=== PATIENT | male | born 1940 ===

== ENCOUNTER 2021-02-12 09:32 | Emergency (ER) | payer MEDICARE, BC ==
[2021-02-12] MEDS ORDERED: Sodium Chloride 0.9% 1,000 ML IV ONE (09:53)
--- NOTE | 2021-02-12 10:01 | EDM.PDOC ---
ED HPI GENERAL MEDICAL PROBLEM - General Chief Complaint: General Stated Complaint: WEAK CANT GET FLUIDS DOWN Time Seen by Provider: 02/12/21 09:42 Source of Information: Reports: Patient History Limitations: Reports: No Limitations - History of Present Illness INITIAL COMMENTS - FREE TEXT/NARRATIVE: She is a 80-year-old male who was tested positive for Covid a few days ago pre sents today for increased weakness and fatigue. Patient also states he has some nausea but not able tolerate p.o. for the past few days as well. Patient otherwise does not report any increased shortness of breath. - Related Data Allergies Allergy/AdvReac Type Severity Reaction Status Date / Time No Known Allergies Allergy Verified 02/12/21 09:38 Home Meds: Home Meds . [No Known Home Meds] 02/12/21 [History] Past Medical History - Past Health History Medical/Surgical History: Denies Medical/Surgical History - Infectious Disease History Infectious Disease History: Reports: Chicken Pox, Measles, Mumps, Novel Coronavirus, Rubella Social & Family History - Family History Family Medical History: No Pertinent Family History ED ROS GENERAL - Review of Systems Review Of Systems: See Below Constitutional: Reports: No Symptoms HEENT: Reports: No Symptoms Respiratory: Reports: No Symptoms Cardiovascular: Reports: No Symptoms Endocrine: Reports: No Symptoms GI/Abdominal: Reports: No Symptoms : Reports: No Symptoms Musculoskeletal: Reports: No Symptoms Skin: Reports: No Symptoms Neurological: Reports: Weakness Psychiatric: Reports: No Symptoms Hematologic/Lymphatic: Reports: No Symptoms Immunologic: Reports: No Symptoms ED EXAM, GENERAL - Physical Exam Exam: See Below Exam Limited By: No Limitations General Appearance: Alert, WD/WN, No Apparent Distress Eye Exam: Bilateral Eye: EOMI Head: Atraumatic Respiratory/Chest: No Respiratory Distress, Lungs Clear, Normal Breath Sounds Cardiovascular: Normal Peripheral Pulses, Regular Rate, Rhythm GI/Abdominal: Normal Bowel Sounds, Soft, Non-Tender Neurological: Alert, Oriented, Normal Cognition, Normal Gait #1 Interpretation EKG Date: 02/12/21 Time: 09:35 Rhythm: NSR Rate (Beats/Min): 83 ST-T: Normal Course - Vital Signs Last Recorded V/S: Last Vital Signs Temp 99.7 F 02/12/21 09:39 Pulse 75 02/12/21 11:25 Resp 18 02/12/21 11:25 BP 106/62 02/12/21 11:25 Pulse Ox 93 L 02/12/21 11:25 - Orders/Labs/Meds Orders: Active Orders 24 hr Category Date Time Status EKG Documentation Completion [RC] STAT Care 02/12/21 09:57 Active Labs: Laboratory Tests 02/12/21 02/12/21 02/12/21 Range/Units 09:42 09:42 09:42 WBC 5.69 (4.0-11.0) K/uL RBC 4.72 (4.50-5.90) M/uL Hgb 14.4 (13.0-17.0) g/dL Hct 42.6 (38.0-50.0) % MCV 90.3 (80.0-98.0) fL MCH 30.5 (27.0-32.0) pg MCHC 33.8 (31.0-37.0) g/dL RDW Std Deviation 41.9 (28.0-62.0) fl RDW Coeff of Lillian 13 (11.0-15.0) % Plt Count 141 L (150-400) K/uL MPV 10.50 (7.40-12.00) fL Neut % (Auto) 81.8 H (48.0-80.0) % Lymph % (Auto) 8.1 L (16.0-40.0) % [place] % (Auto) 9.7 (0.0-15.0) % Eos % (Auto) 0.2 (0.0-7.0) % Baso % (Auto) 0.2 (0.0-1.5) % Neut # (Auto) 4.7 (1.4-5.7) K/uL Lymph # (Auto) 0.5 L (0.6-2.4) K/uL [place] # (Auto) 0.6 (0.0-0.8) K/uL Eos # (Auto) 0.0 (0.0-0.7) K/uL Baso # (Auto) 0.0 (0.0-0.1) K/uL Nucleated RBC % 0.0 /100WBC Nucleated RBCs # 0 K/uL Lactate 1.3 (0.20-2.00) mmol/L Sodium 138 (136-148) mmol/L Potassium 4.6 (3.5-5.1) mmol/L Chloride 105 (98-107) mmol/L Carbon Dioxide 20.7 L (21.0-32.0) mmol/L BUN 51 H (7.0-18.0) mg/dL Creatinine 3.0 H (0.8-1.3) mg/dL Est Cr Clr Drug Dosing 21.27 mL/min Estimated GFR (MDRD) 20.3 ml/min Glucose 141 H (74-106) mg/dL Calcium 8.0 L (8.5-10.1) mg/dL Phosphorus 2.8 (2.6-4.7) mg/dL Magnesium 2.1 (1.8-2.4) mg/dL Total Bilirubin 0.6 (0.2-1.0) mg/dL AST 36 (15-37) IU/L ALT 33 (14-63) IU/L Alkaline Phosphatase 76 (46-116) U/L Total Protein 7.3 (6.4-8.2) g/dL Albumin 3.0 L (3.4-5.0) g/dL Globulin 4.3 H (2.6-4.0) g/dL Albumin/Globulin Ratio 0.7 L (0.9-1.6) Meds: Medications Discontinued Medications Generic Name Dose Route Start Last Admin Trade Name Kennedyq PRN Reason Stop Dose Admin Sodium Chloride 1,000 mls @ 999 mls/hr 02/12/21 09:53 02/12/21 10:12 Normal Saline IV 02/12/21 10:53 999 mls/hr .BOLUS ONE Administration - Re-Assessments/Exams Free Text/Narrative Re-Assessment/Exam: 02/12/21 11:58 Patient labs reviewed. Patient creatinine is 3 as well as baseline of 2.7. Patient was given a liter of fluids and feels a lot better here. Patient oxygen level hangs around 95% on room air. We spoke to patient about possible admission he states that he would prefer to go home we spoke to patient's that the patient could possibly be admitted as well but they both like the patient to be discharged home and can return at a later date. Patient x-ray is clear and states he has no complaints of shortness of breath he mainly came in for feeling weak and nauseous. Patient now feels better and feels that he can tolerate p.o. Departure - Departure Time of Disposition: 11:59 Disposition: Home, Self-Care 01 Condition: Good Clinical Impression: Ongoing symptomatic disease due to COVID-19 virus - Discharge Information *PRESCRIPTION DRUG MONITORING PROGRAM REVIEWED*: Not Applicable *COPY OF PRESCRIPTION DRUG MONITORING REPORT IN PATIENT CARLOS: Not Applicable Instructions: COVID-19 Frequently Asked Questions Referrals: PCP,None [Primary Care Provider] - Forms: ED Department Discharge Additional Instructions: The following information is given to patients seen in the emergency department who are being discharged to home. This information is to outline your options for follow-up care. We provide all patients seen in our emergency department with a follow-up referral. The need for follow-up, as well as the timing and circumstances, are variable depending upon the specifics of your emergency department visit. If you don't have a primary care physician on staff, we will provide you with a referral. We always advise you to contact your personal physician following an emergency department visit to inform them of the circumstance of the visit and for follow-up with them and/or the need for any referrals to a consulting specialist. The emergency department will also refer you to a specialist when appropriate. This referral assures that you have the opportunity for follow-up care with a specialist. All of these measure are taken in an effort to provide you with optimal care, which includes your follow-up. Under all circumstances we always encourage you to contact your private physician who remains a resource for coordinating your care. When calling for follow-up care, please make the office aware that this follow-up is from your recent emergency room visit. If for any reason you are refused follow-up, please contact the [facility] Emergency Department at and asked to speak to the emergency department charge nurse. Please follow up with your primary care physician. If you do not have a primary care physician, see below: [facility] [address] [place] [id number] [facility] [address] [place] [address] You are seen today for weakness and fatigue. You were diagnosed with Covid a few days ago. Your oxygen levels around 95% we could keep you in the hospital and monitor you you and your both elected to have you go home and return if you felt worse. Recommend you stay hydrated and get rest while at home if you b ecome short of breath please immediately return to the ED. Sepsis Event Note (ED) - Evaluation Sepsis Screening Result: No Definite Risk - Focused Exam Vital Signs: Vital Signs Temp Pulse Resp BP Pulse Ox 02/12/21 11:25 75 18 106/62 93 L 02/12/21 09:39 99.7 F 86 18 113/67 90 L - My Orders Last 24 Hours: My Active Orders 02/12/21 09:57 EKG Documentation Completion [RC] STAT - Assessment/Plan Last 24 Hours: My Active Orders 02/12/21 09:57 EKG Documentation Completion [RC] STAT Plan: Patient is a 80-year-old male who presents today for increased weakness and fatigue after being tested positive for Covid. Will obtain labs x-ray EKG and reassess.
[2021-02-12 10:17] LABS: CARBON DIOXIDE,CO2 20.7 mmol/L (21.0-32.0); POTASSIUM,K 4.6 mmol/L (3.5-5.1)
--- NOTE | 2021-02-12 10:24 | CR ---
INDICATION: Weakness. COVID positive. TECHNIQUE: Chest 1 view COMPARISON: None FINDINGS: Cardiovascular and mediastinum: Heart size and vasculature are normal in caliber and appearance. Lungs and pleural spaces: Lungs are clear. No sign of infiltrate or mass. No sign of pleural effusion. No pneumothorax. Bones and soft tissues: No significant findings. IMPRESSION: No acute or significant findings. No sign of pneumonia. Dictated by Brian Espinosa MD @ 02/12/2021 10:23:[address] Brian Espinosa @ Feb 12 2021 10:23AM
== END 2021-02-12 12:06 | disposition home or self-care (01) ==
LOC: MW.ED 09:32
DX: U07.1 COVID-19 (principal)
CPT/HCPCS: 71045; 80053; 83605; 83735; 84100; 85025; 93005; 99285; J7030; 93010; 99283

== ENCOUNTER 2021-02-13 13:45 | Inpatient (IN) | payer MEDICARE, BC ==
[2021-02-13 14:51] LABS: BLOOD UREA NITROGEN,BUN 50 mg/dL (7.0-18.0); CARBON DIOXIDE,CO2 25.1 mmol/L (21.0-32.0); CHLORIDE,CL 106 mmol/L (98-107); GLUCOSE RANDOM 108 mg/dL (74-106); POTASSIUM,K 4.6 mmol/L (3.5-5.1); SODIUM,NA 141 mmol/L (136-148)
[2021-02-13] MEDS ORDERED: Benzonatate 100 MG Cap PO ONE (14:54)
--- NOTE | 2021-02-13 14:57 | EDM.PDOC ---
ED HPI GENERAL MEDICAL PROBLEM - General Chief Complaint: Respiratory Problem Stated Complaint: DIIFICULTY BREATHING Time Seen by Provider: 02/13/21 14:02 Source of Information: Reports: Patient History Limitations: Reports: No Limitations - History of Present Illness INITIAL COMMENTS - FREE TEXT/NARRATIVE: Patient is a 80-year-old male who presents today for cough and weakness. Patient was seen here yesterday by myself at the was diagnosed with Covid a few days ago. At that time he said pain states he was feeling well after having a liter of fluids he come in yesterday because of his decreased p.o. intake. Patient here today was satting about 80% on room air but he still feels tired and weak. Patient otherwise denies any fever chills or chest pain. - Related Data Allergies Allergy/AdvReac Type Severity Reaction Status Date / Time No Known Allergies Allergy Verified 02/13/21 13:58 Home Meds: Home Meds . [No Known Home Meds] 02/12/21 [History] Past Medical History - Past Health History Medical/Surgical History: Denies Medical/Surgical History - Infectious Disease History Infectious Disease History: Reports: Chicken Pox, Measles, Mumps, Novel Coronavirus, Rubella Social & Family History - Family History Family Medical History: No Pertinent Family History - Tobacco Use Tobacco Use Status *Q: Unknown Ever Used Tobacco - Caffeine Use Caffeine Use: Reports: None - Recreational Drug Use Recreational Drug Use: No ED ROS GENERAL - Review of Systems Review Of Systems: See Below Constitutional: Reports: Weakness HEENT: Reports: No Symptoms Respiratory: Reports: No Symptoms Cardiovascular: Reports: No Symptoms Endocrine: Reports: No Symptoms GI/Abdominal: Reports: No Symptoms : Reports: No Symptoms Musculoskeletal: Reports: No Symptoms Skin: Reports: No Symptoms Neurological: Reports: No Symptoms Psychiatric: Reports: No Symptoms Hematologic/Lymphatic: Reports: No Symptoms Immunologic: Reports: No Symptoms ED EXAM, GENERAL - Physical Exam Exam: See Below Exam Limited By: No Limitations General Appearance: Alert, WD/WN Eye Exam: Bilateral Eye: EOMI, PERRL Respiratory/Chest: No Respiratory Distress, Lungs Clear Cardiovascular: Normal Peripheral Pulses, Regular Rate, Rhythm GI/Abdominal: Normal Bowel Sounds, Soft, Non-Tender Neurological: Alert, Oriented #1 Interpretation EKG Date: 02/13/21 Time: 13:52 Rhythm: NSR Rate (Beats/Min): 93 ST-T: Normal Course - Vital Signs Last Recorded V/S: Last Vital Signs Temp 98.6 F 02/13/21 13:58 Pulse 81 02/13/21 15:38 Resp 17 02/13/21 15:38 BP 134/80 02/13/21 15:38 Pulse Ox 94 L 02/13/21 15:38 - Orders/Labs/Meds Labs: Laboratory Tests 02/13/21 02/13/21 02/13/21 Range/Units 14:12 14:12 14:25 WBC 5.53 (4.0-11.0) K/uL RBC 4.64 (4.50-5.90) M/uL Hgb 14.1 (13.0-17.0) g/dL Hct 41.7 (38.0-50.0) % MCV 89.9 (80.0-98.0) fL MCH 30.4 (27.0-32.0) pg MCHC 33.8 (31.0-37.0) g/dL RDW Std Deviation 41.9 (28.0-62.0) fl RDW Coeff of Lillian 13 (11.0-15.0) % Plt Count 157 (150-400) K/uL MPV 9.90 (7.40-12.00) fL Neut % (Auto) 75.7 (48.0-80.0) % Lymph % (Auto) 10.7 L (16.0-40.0) % [place] % (Auto) 13.4 (0.0-15.0) % Eos % (Auto) 0.0 (0.0-7.0) % Baso % (Auto) 0.2 (0.0-1.5) % Neut # (Auto) 4.2 (1.4-5.7) K/uL Lymph # (Auto) 0.6 (0.6-2.4) K/uL [place] # (Auto) 0.7 (0.0-0.8) K/uL Eos # (Auto) 0.0 (0.0-0.7) K/uL Baso # (Auto) 0.0 (0.0-0.1) K/uL Nucleated RBC % 0.0 /100WBC Nucleated RBCs # 0 K/uL Sodium 141 (136-148) mmol/L Potassium 4.6 (3.5-5.1) mmol/L Chloride 106 (98-107) mmol/L Carbon Dioxide 25.1 (21.0-32.0) mmol/L BUN 50 H (7.0-18.0) mg/dL Creatinine 2.9 H (0.8-1.3) mg/dL Est Cr Clr Drug Dosing 21.33 mL/min Estimated GFR (MDRD) 21.1 ml/min Glucose 108 H (74-106) mg/dL Calcium 8.1 L (8.5-10.1) mg/dL Total Bilirubin 0.6 (0.2-1.0) mg/dL AST 39 H (15-37) IU/L ALT 31 (14-63) IU/L Alkaline Phosphatase 77 (46-116) U/L Creatine Kinase 63 (26-308) U/L Troponin I < 0.050 (0.000-0.056) ng/mL Total Protein 7.3 (6.4-8.2) g/dL Albumin 2.9 L (3.4-5.0) g/dL Globulin 4.4 H (2.6-4.0) g/dL Albumin/Globulin Ratio 0.7 L (0.9-1.6) SARS-CoV-2 RNA (ROSIO) POSITIVE H (NEGATIVE) Meds: Medications Discontinued Medications Generic Name Dose Route Start Last Admin Trade Name Freq PRN Reason Stop Dose Admin Benzonatate 100 mg 02/13/21 14:54 02/13/21 15:12 Benzonatate 100 Mg Cap PO 02/13/21 14:55 100 mg ONETIME ONE Administration - Re-Assessments/Exams Free Text/Narrative Re-Assessment/Exam: 02/13/21 16:23 Patient will be admitted to the hospital she remains satting in the low 90s high 80s on nasal cannula. Departure - Departure Time of Disposition: 16:23 Disposition: Admitted As Inpatient 66 Condition: Good Clinical Impression: Multiple persistent symptoms after COVID-19 - Discharge Information *PRESCRIPTION DRUG MONITORING PROGRAM REVIEWED*: Not Applicable *COPY OF PRESCRIPTION DRUG MONITORING REPORT IN PATIENT CARLOS: Not Applicable Referrals: PCP,None [Primary Care Provider] - Forms: ED Department Discharge Sepsis Event Note (ED) - Evaluation Sepsis Screening Result: No Definite Risk - Focused Exam Vital Signs: Vital Signs Temp Pulse Resp BP Pulse Ox 02/13/21 15:38 81 17 134/80 94 L 02/13/21 13:58 98.6 F 93 17 135/71 88 L - Assessment/Plan Plan: Patient 80-year-old male presents today for weakness and fatigue and also requiring 2 L nasal cannula his oxygen level was 88% on room air. Patient will have repeat x-ray labs and likely require admission.
--- NOTE | 2021-02-13 15:34 | CR ---
HISTORY: COVID-19 positive with hypoxia. COMPARISON: From yesterday at 1006 hours FINDINGS: A portable erect AP view of the chest was obtained at 14 50 hours. There is new mild patchy infiltrate in the left lateral mid-lower lung, with a hazy appearance typical of COVID-19 infection, although not diagnostic of it. There is new minimal streaky infiltrate in the right perihilar upper lobe along the superior aspect of the right minor fissure, also suggestive of COVID-19. The heart remains normal in size. The mediastinum is normal in appearance. The osseous structures are normal in appearance for the patient`s age. IMPRESSION: New mild patchy infiltrate in the left lateral mid-lower lung and mild streaky infiltrate in the anterior inferior right middle lobe along the major fissure, suggestive of COVID-19 infection, although not diagnostic of it. Dictated by Gordon Marcelino MD @ 02/13/2021 3:32:[address] Gordon Marcelino @ Feb 13 2021 3:32PM
[2021-02-13] MEDS ORDERED: Ondansetron 4 MG/2 ML SDV IVPUSH PRN (18:00)
[2021-02-13] MEDS ORDERED: REMDESIVIR 200 MG in Sodium Chloride 0.9% 250 ML IV ONE (18:00)
[2021-02-13] MEDS ORDERED: Lactated Ringers 1,000 ML IV ONE (18:00)
[2021-02-13] MEDS: Heparin Sodium 5,000 Units/ML Vial SUBCUT SCH (18:10)
[2021-02-13] MEDS: Dexamethasone 4 MG Tab PO SCH (18:10)
--- NOTE | 2021-02-13 18:16 | PCM.HP.2 ---
H&P History of Present Illness - General Date of Service: 02/13/21 Admit Problem/Dx: Admission Diagnosis/Problem Admission Diagnosis/Problem Hypoxia - History of Present Illness Initial Comments - Free Text/Narative: Patient is a 80-year-old male who presents today for cough and weakness. Patient was diagnosed with Covid a few days ago. States he has been feeling progressively weaker and his oral intake has decreased as well, he visited ER yesterday but was not hypoxic so was sent home after receiving IV fluids, In the ER patient was saturating 80% and he was started on oxygen. He does feel some shortness or breath. Patient otherwise denies any fever chills or chest pain. Casting Technician was 2.9 possible VELIA over CKD, CXR was suggestive of covid pneumonia. Patient is being admitted for further care. - Related Data Allergies/Adverse Reactions: Allergies Allergy/AdvReac Type Severity Reaction Status Date / Time No Known Allergies Allergy Verified 02/13/21 17:28 Home Medications: Home Meds . 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 - Infectious Disease History Infectious Disease History: Reports: Chicken Pox, Measles, Mumps, Novel Coronavirus, Rubella - Past Surgical History HEENT Surgical History: Reports: None GI Surgical History: Reports: Hernia Repair/Other Male Surgical History: Reports: Other (See Below) Other Male Surgeries/Procedures: pt reports seed implantation for tx of prostate cancer Musculoskeletal Surgical History: Reports: Other (See Below) Other Musculoskeletal Surgeries/Procedures:: L knee ACL repair Oncologic Surgical History: Reports: Other (See Below) Other Oncologic Surgeries/Procedures: seeds planted for the propstate cancer. Lip cancer burned 2 times. Dermatological Surgical History: Reports: Other (See Below) Social & Family History - Family History Family Medical History: No Pertinent Family History - Tobacco Use Tobacco Use Status *Q: Never Tobacco User Second Hand Smoke Exposure: No - Caffeine Use Caffeine Use: Reports: Coffee, Soda - Recreational Drug Use Recreational Drug Use: No H&P Review of Systems - Review of Systems: Review Of Systems: See Below General: Reports: Malaise, Weakness, Fatigue. Denies: Fever, Chills Pulmonary: Reports: Shortness of Breath, Cough. Denies: Wheezing, Pleuritic Chest Pain Cardiovascular: Reports: Dyspnea on Exertion. Denies: Chest Pain, Palpitations Gastrointestinal: Reports: Anorexia. Denies: Abdominal Pain, Diarrhea, Distension, Nausea Genitourinary: Denies: Dysuria, Frequency, Burning Musculoskeletal: Denies: Neck Pain, Shoulder Pain, Arm Pain Skin: Denies: Cyanosis, Jaundice Psychiatric: Denies: Confusion, Depression, Mood Lability Neurological: Denies: Confusion, Dizziness, Headache, Trouble Speaking Exam - Exam Exam: See Below - Vital Signs Vital Signs: Last Vital Signs Temp 36.8 C 02/13/21 17: Pulse 89 02/13/21 17: Resp 26 H 02/13/21 17:29 BP 133/66 02/13/21 17:29 Pulse Ox 93 L 02/13/21 17:29 Weight: 81.647 kg - Exam General: Alert, Oriented, Mild Distress Neck: Supple Lungs: Normal Respiratory Effort, Decreased Breath Sounds, Crackles, Rales Cardiovascular: Regular Rate, Regular Rhythm, Normal S1, Normal S2 GI/Abdominal Exam: Normal Bowel Sounds, Soft, Non-Tender - Patient Data Lab Results Last 24 hrs: Laboratory Results - last 24 hr 02/13/21 02/13/21 02/13/21 Range/Units 14:12 14:12 14:25 WBC 5.53 (4.0-11.0) K/uL RBC 4.64 (4.50-5.90) M/uL Hgb 14.1 (13.0-17.0) g/dL Hct 41.7 (38.0-50.0) % MCV 89.9 (80.0-98.0) fL MCH 30.4 (27.0-32.0) pg MCHC 33.8 (31.0-37.0) g/dL RDW Std Deviation 41.9 (28.0-62.0) fl RDW Coeff of Lillian 13 (11.0-15.0) % Plt Count 157 (150-400) K/uL MPV 9.90 (7.40-12.00) fL Neut % (Auto) 75.7 (48.0-80.0) % Lymph % (Auto) 10.7 L (16.0-40.0) % [place] % (Auto) 13.4 (0.0-15.0) % Eos % (Auto) 0.0 (0.0-7.0) % Baso % (Auto) 0.2 (0.0-1.5) % Neut # (Auto) 4.2 (1.4-5.7) K/uL Lymph # (Auto) 0.6 (0.6-2.4) K/uL [place] # (Auto) 0.7 (0.0-0.8) K/uL Eos # (Auto) 0.0 (0.0-0.7) K/uL Baso # (Auto) 0.0 (0.0-0.1) K/uL Nucleated RBC % 0.0 /100WBC Nucleated RBCs # 0 K/uL Sodium 141 (136-148) mmol/L Potassium 4.6 (3.5-5.1) mmol/L Chloride 106 (98-107) mmol/L Carbon Dioxide 25.1 (21.0-32.0) mmol/L BUN 50 H (7.0-18.0) mg/dL Creatinine 2.9 H (0.8-1.3) mg/dL Est Cr Clr Drug Dosing 21.33 mL/min Estimated GFR (MDRD) 21.1 ml/min Glucose 108 H (74-106) mg/dL Calcium 8.1 L (8.5-10.1) mg/dL Total Bilirubin 0.6 (0.2-1.0) mg/dL AST 39 H (15-37) IU/L ALT 31 (14-63) IU/L Alkaline Phosphatase 77 (46-116) U/L Creatine Kinase 63 (26-308) U/L Troponin I < 0.050 (0.000-0.056) ng/mL Total Protein 7.3 (6.4-8.2) g/dL Albumin 2.9 L (3.4-5.0) g/dL Globulin 4.4 H (2.6-4.0) g/dL Albumin/Globulin Ratio 0.7 L (0.9-1.6) SARS-CoV-2 RNA (ROSIO) POSITIVE H (NEGATIVE) Result Diagrams: 02/13/21 14:12 02/13/21 14:12 Sepsis Event Note - Evaluation Sepsis Screening Result: No Definite Risk - Focused Exam Vital Signs: Vital Signs Temp Pulse Resp BP BP Pulse Ox 02/13/21 17:29 36.8 C 89 26 H 133/66 93 L 02/13/21 17:05 91 136/70 94 L 02/13/21 15:38 81 17 134/80 94 L 02/13/21 13:58 37.0 C 93 17 135/71 88 L - Problem List (1) Acute respiratory failure with hypoxemia SNOMED Code(s): 704974038 ICD Code: J96.01 - ACUTE RESPIRATORY FAILURE WITH HYPOXIA Status: Acute Current Visit: Yes Problem List Initiated/Reviewed/Updated: Yes Orders Last 24hrs: Active Orders 24 hr Category Date Time Status Patient Status [ADT] Routine ADT 02/13/21 16:24 Active Ambulate [RC] ASDIRECTED Care 02/13/21 17:43 Active Antiembolic Devices [RC] PER UNIT ROUTINE Care 02/13/21 17:45 Active Oxygen Therapy [RC] PRN Care 02/13/21 17:43 Active RT Post Treatment Assessment [RC] Click to Edit Care 02/13/21 17:47 Active RT Pre-Treatment Assessment [RC] Click to Edit Care 02/13/21 17:47 Active VTE/DVT Education [RC] PER UNIT ROUTINE Care 02/13/21 17:43 Active Vital Signs [RC] Q4H Care 02/13/21 17:43 Active Regular Diet [DIET] Diet 02/13/21 Dinner Active CBC WITH AUTO DIFF [HEME] AM Lab 02/14/21 05:11 Ordered CMP [COMPREHENSIVE METABOLIC PN,CMP] [CHEM] AM Lab 02/14/21 05:11 Ordered MAGNESIUM [CHEM] AM Lab 02/14/21 05:11 Ordered PHOSPHORUS [CHEM] AM Lab 02/14/21 05:11 Ordered Albuterol/Ipratropium [Combivent Respimat] Med 02/13/21 18:00 Active See Dose Instructions INH Q4H Heparin Sodium Med 02/13/21 18:00 Active 5,000 units SUBCUT Q8H Lactated Ringers [Ringers, Lactated] 1,000 ml Med 02/13/21 18:00 Active IV BOLUS Levofloxacin/Dextrose 5%-Water [Levaquin in D5W 750 MG/ Med 02/13/21 19:00 Active 150 ML] 750 mg Premix Bag 1 bag IV Q48H Ondansetron [Zofran] Med 02/13/21 18:00 Active 4 mg IVPUSH Q4H PRN Remdesivir 100 mg Med 02/14/21 18:00 Active Sodium Chloride 0.9% [Normal Saline] 100 ml IV Q24H Remdesivir 200 mg Med 02/13/21 18:00 Active Sodium Chloride 0.9% [Normal Saline] 250 ml IV ONETIME dexAMETHasone Med 02/13/21 18:00 Active 6 mg PO DAILY Sequential Compression Device [OM.PC] Per Unit Routine Oth 02/13/21 17:44 Ordered Medication Orders Albuterol/Ipratropium (Albuterol/Ipratropium 4 Gm Inhalation Ozan) 0 gm INH Q4H [facility] Dexamethasone (Dexamethasone 4 Mg Tab) 6 mg PO DAILY [facility] Last Admin: 02/13/21 18:10 Dose: 6 mg Documented by: VIPIN Heparin Sodium (Porcine) (Heparin Sodium 5,000 Units/Ml Vial) 5,000 units SUBCUT Q8H [facility] Last Admin: 02/13/21 18:10 Dose: 5,000 units Documented by: VIPIN Lactated Ringer's (Ringers, Lactated) 1,000 mls @ 999 mls/hr IV BOLUS ONE Stop: 02/13/21 19:00 Remdesivir 200 mg/ Sodium (Chloride) 250 mls @ 250 mls/hr IV ONETIME ONE Stop: 02/13/21 18:59 Remdesivir 100 mg/ Sodium (Chloride) 100 mls @ 100 mls/hr IV Q24H [facility] Stop: 02/17/21 18:59 Levofloxacin/Dextrose 750 mg/ (Premix) 150 mls @ 100 mls/hr IV Q48H [facility] Ondansetron HCl (Ondansetron 4 Mg/2 Ml Sdv) 4 mg IVPUSH Q4H PRN PRN Reason: Nausea/Vomiting Assessment/Plan Comment:: 80 y/o M admitted for Hypoxia sec. to COVID, start oxygen via [place] IV fluids 1L bolus start remdesivir start PO dexamethasone Start heparin for dvt ppx COmbivent as needed IV levaquin for possible superimposed bacterial pneumonia regular diet
[2021-02-13] MEDS: Albuterol/Ipratropium 4 GM Inhalation Spray INH SCH ×2 (18:27→21:48)
[2021-02-13] MEDS: Levofloxacin/Dextrose 5%-Water 750 MG in Premix Bag 1 BAG IV SCH (20:00)
[2021-02-14] MEDS: Heparin Sodium 5,000 Units/ML Vial SUBCUT SCH (01:46)
[2021-02-14] MEDS: Albuterol/Ipratropium 4 GM Inhalation Spray INH SCH ×6 (01:46→22:36)
[2021-02-14 06:38] LABS: CARBON DIOXIDE,CO2 20.6 mmol/L (21.0-32.0); POTASSIUM,K 4.7 mmol/L (3.5-5.1)
[2021-02-14] MEDS: Dexamethasone 4 MG Tab PO SCH (08:57)
[2021-02-14] MEDS: Enoxaparin 30 MG/0.3 ML Syringe SUBCUT SCH (08:57)
--- NOTE | 2021-02-14 13:04 | PCM.PN ---
- General Info Date of Service: 02/14/21 Admission Dx/Problem (Free Text): Admission Diagnosis/Problem Admission Diagnosis/Problem Hypoxia Functional Status: Reports: Tolerating Diet, Urinating. Denies: Ambulating - Review of Systems General: Reports: Weakness, Fatigue. Denies: Fever Pulmonary: Reports: Shortness of Breath, Cough, Sputum. Denies: Pleuritic Chest Pain Cardiovascular: Reports: Dyspnea on Exertion. Denies: Chest Pain, Palpitations, Orthopnea Gastrointestinal: Denies: Abdominal Pain, Constipation, Decreased Appetite, Nausea, Vomiting Genitourinary: Denies: Dysuria, Frequency, Burning Musculoskeletal: Denies: Shoulder Pain, Arm Pain, Hand Pain Skin: Denies: Jaundice, Mottled, Pallor, Diaphoresis Neurological: Denies: Dizziness, Headache, Numbness - Patient Data Vitals - Most Recent: Last Vital Signs Temp 36.1 C 02/14/21 12:11 Pulse 81 02/14/21 12:11 Resp 18 02/14/21 12:11 BP 113/67 02/14/21 12:11 Pulse Ox 92 L 02/14/21 12:11 Weight - Most Recent: 81.647 kg I&O - Last 24 Hours: Intake & Output 02/13/21 02/14/21 02/14/21 22:59 06:59 14:59 Intake Total 1399 350 Output Total 450 Balance 1399 -100 Lab Results Last 24 Hours: Laboratory Results - last 24 hr 02/13/21 02/13/21 02/13/21 Range/Units 14:12 14:12 14:25 WBC 5.53 (4.0-11.0) K/uL RBC 4.64 (4.50-5.90) M/uL Hgb 14.1 (13.0-17.0) g/dL Hct 41.7 (38.0-50.0) % MCV 89.9 (80.0-98.0) fL MCH 30.4 (27.0-32.0) pg MCHC 33.8 (31.0-37.0) g/dL RDW Std Deviation 41.9 (28.0-62.0) fl RDW Coeff of Lillian 13 (11.0-15.0) % Plt Count 157 (150-400) K/uL MPV 9.90 (7.40-12.00) fL Neut % (Auto) 75.7 (48.0-80.0) % Lymph % (Auto) 10.7 L (16.0-40.0) % [place] % (Auto) 13.4 (0.0-15.0) % Eos % (Auto) 0.0 (0.0-7.0) % Baso % (Auto) 0.2 (0.0-1.5) % Neut # (Auto) 4.2 (1.4-5.7) K/uL Lymph # (Auto) 0.6 (0.6-2.4) K/uL [place] # (Auto) 0.7 (0.0-0.8) K/uL Eos # (Auto) 0.0 (0.0-0.7) K/uL Baso # (Auto) 0.0 (0.0-0.1) K/uL Nucleated RBC % 0.0 /100WBC Nucleated RBCs # 0 K/uL Sodium 141 (136-148) mmol/L Potassium 4.6 (3.5-5.1) mmol/L Chloride 106 (98-107) mmol/L Carbon Dioxide 25.1 (21.0-32.0) mmol/L BUN 50 H (7.0-18.0) mg/dL Creatinine 2.9 H (0.8-1.3) mg/dL Est Cr Clr Drug Dosing 21.33 mL/min Estimated GFR (MDRD) 21.1 ml/min Glucose 108 H (74-106) mg/dL Calcium 8.1 L (8.5-10.1) mg/dL Phosphorus (2.6-4.7) mg/dL Magnesium (1.8-2.4) mg/dL Total Bilirubin 0.6 (0.2-1.0) mg/dL AST 39 H (15-37) IU/L ALT 31 (14-63) IU/L Alkaline Phosphatase 77 (46-116) U/L Creatine Kinase 63 (26-308) U/L Troponin I < 0.050 (0.000-0.056) ng/mL Total Protein 7.3 (6.4-8.2) g/dL Albumin 2.9 L (3.4-5.0) g/dL Globulin 4.4 H (2.6-4.0) g/dL Albumin/Globulin Ratio 0.7 L (0.9-1.6) SARS-CoV-2 RNA (ROSIO) POSITIVE H (NEGATIVE) 02/14/21 02/14/21 Range/Units 05:49 05:49 WBC 3.28 L (4.0-11.0) K/uL RBC 4.33 L (4.50-5.90) M/uL Hgb 13.0 (13.0-17.0) g/dL Hct 38.5 (38.0-50.0) % MCV 88.9 (80.0-98.0) fL MCH 30.0 (27.0-32.0) pg MCHC 33.8 (31.0-37.0) g/dL RDW Std Deviation 40.7 (28.0-62.0) fl RDW Coeff of Lillian 13 (11.0-15.0) % Plt Count 161 (150-400) K/uL MPV 10.20 (7.40-12.00) fL Neut % (Auto) 82.7 H (48.0-80.0) % Lymph % (Auto) 9.1 L (16.0-40.0) % [place] % (Auto) 7.9 (0.0-15.0) % Eos % (Auto) 0.0 (0.0-7.0) % Baso % (Auto) 0.3 (0.0-1.5) % Neut # (Auto) 2.7 (1.4-5.7) K/uL Lymph # (Auto) 0.3 L (0.6-2.4) K/uL [place] # (Auto) 0.3 (0.0-0.8) K/uL Eos # (Auto) 0.0 (0.0-0.7) K/uL Baso # (Auto) 0.0 (0.0-0.1) K/uL Nucleated RBC % 0.0 /100WBC Nucleated RBCs # 0 K/uL Sodium 141 (136-148) mmol/L Potassium 4.7 (3.5-5.1) mmol/L Chloride 108 H (98-107) mmol/L Carbon Dioxide 20.6 L (21.0-32.0) mmol/L BUN 50 H (7.0-18.0) mg/dL Creatinine 2.5 H (0.8-1.3) mg/dL Est Cr Clr Drug Dosing 25.52 mL/min Estimated GFR (MDRD) 25.0 ml/min Glucose 153 H (74-106) mg/dL Calcium 8.3 L (8.5-10.1) mg/dL Phosphorus 3.2 (2.6-4.7) mg/dL Magnesium 1.9 (1.8-2.4) mg/dL Total Bilirubin 0.5 (0.2-1.0) mg/dL AST 32 (15-37) IU/L ALT 26 (14-63) IU/L Alkaline Phosphatase 66 (46-116) U/L Creatine Kinase (26-308) U/L Troponin I (0.000-0.056) ng/mL Total Protein 6.4 (6.4-8.2) g/dL Albumin 2.4 L (3.4-5.0) g/dL Globulin 4.0 (2.6-4.0) g/dL Albumin/Globulin Ratio 0.6 L (0.9-1.6) SARS-CoV-2 RNA (ROSIO) (NEGATIVE) Med Orders - Current: Current Medications Albuterol/Ipratropium (Albuterol/Ipratropium 4 Gm Inhalation [place]) 0 gm INH Q4H [facility] Last Admin: 02/14/21 10:48 Dose: 1 puff Documented by: Dexamethasone (Dexamethasone 4 Mg Tab) 6 mg PO DAILY [facility] Last Admin: 02/14/21 08:57 Dose: 6 mg Documented by: Enoxaparin Sodium (Enoxaparin 30 Mg/0.3 Ml Syringe) 30 mg SUBCUT Q24H [facility] Last Admin: 02/14/21 08:57 Dose: 30 mg Documented by: Remdesivir 100 mg/ Sodium (Chloride) 100 mls @ 100 mls/hr IV Q24H [facility] Stop: 02/17/21 18:59 Levofloxacin/Dextrose 750 mg/ (Premix) 150 mls @ 100 mls/hr IV Q48H [facility] Last Admin: 02/13/21 20:00 Dose: 100 mls/hr Documented by: Ondansetron HCl (Ondansetron 4 Mg/2 Ml Sdv) 4 mg IVPUSH Q4H PRN PRN Reason: Nausea/Vomiting Discontinued Medications Benzonatate (Benzonatate 100 Mg Cap) 100 mg PO ONETIME ONE Stop: 02/13/21 14:55 Last Admin: 02/13/21 15:12 Dose: 100 mg Documented by: Heparin Sodium (Porcine) (Heparin Sodium 5,000 Units/Ml Vial) 5,000 units SUBCUT Q8H [facility] Last Admin: 02/14/21 01:46 Dose: 5,000 units Documented by: Lactated Ringer's (Ringers, Lactated) 1,000 mls @ 999 mls/hr IV BOLUS ONE Stop: 02/13/21 19:00 Last Admin: 02/13/21 18:14 Dose: 999 mls/hr Documented by: Remdesivir 200 mg/ Sodium (Chloride) 250 mls @ 250 mls/hr IV ONETIME ONE Stop: 02/13/21 18:59 Last Admin: 02/13/21 18:14 Dose: 250 mls/hr Documented by: - Exam Quality Assessment: Supplemental Oxygen General: Alert, Oriented, Cooperative, Mild Distress Neck: Supple Lungs: Clear to Auscultation, Decreased Breath Sounds, Crackles, Rales Cardiovascular: Regular Rate, Regular Rhythm - Patient Data Lab Results Last 24 hrs: Laboratory Results - last 24 hr 02/13/21 02/13/21 02/13/21 Range/Units 14:12 14:12 14:25 WBC 5.53 (4.0-11.0) K/uL RBC 4.64 (4.50-5.90) M/uL Hgb 14.1 (13.0-17.0) g/dL Hct 41.7 (38.0-50.0) % MCV 89.9 (80.0-98.0) fL MCH 30.4 (27.0-32.0) pg MCHC 33.8 (31.0-37.0) g/dL RDW Std Deviation 41.9 (28.0-62.0) fl RDW Coeff of Lillian 13 (11.0-15.0) % Plt Count 157 (150-400) K/uL MPV 9.90 (7.40-12.00) fL Neut % (Auto) 75.7 (48.0-80.0) % Lymph % (Auto) 10.7 L (16.0-40.0) % [place] % (Auto) 13.4 (0.0-15.0) % Eos % (Auto) 0.0 (0.0-7.0) % Baso % (Auto) 0.2 (0.0-1.5) % Neut # (Auto) 4.2 (1.4-5.7) K/uL Lymph # (Auto) 0.6 (0.6-2.4) K/uL [place] # (Auto) 0.7 (0.0-0.8) K/uL Eos # (Auto) 0.0 (0.0-0.7) K/uL Baso # (Auto) 0.0 (0.0-0.1) K/uL Nucleated RBC % 0.0 /100WBC Nucleated RBCs # 0 K/uL Sodium 141 (136-148) mmol/L Potassium 4.6 (3.5-5.1) mmol/L Chloride 106 (98-107) mmol/L Carbon Dioxide 25.1 (21.0-32.0) mmol/L BUN 50 H (7.0-18.0) mg/dL Creatinine 2.9 H (0.8-1.3) mg/dL Est Cr Clr Drug Dosing 21.33 mL/min Estimated GFR (MDRD) 21.1 ml/min Glucose 108 H (74-106) mg/dL Calcium 8.1 L (8.5-10.1) mg/dL Phosphorus (2.6-4.7) mg/dL Magnesium (1.8-2.4) mg/dL Total Bilirubin 0.6 (0.2-1.0) mg/dL AST 39 H (15-37) IU/L ALT 31 (14-63) IU/L Alkaline Phosphatase 77 (46-116) U/L Creatine Kinase 63 (26-308) U/L Troponin I < 0.050 (0.000-0.056) ng/mL Total Protein 7.3 (6.4-8.2) g/dL Albumin 2.9 L (3.4-5.0) g/dL Globulin 4.4 H (2.6-4.0) g/dL Albumin/Globulin Ratio 0.7 L (0.9-1.6) SARS-CoV-2 RNA (ROSIO) POSITIVE H (NEGATIVE) 02/14/21 02/14/21 Range/Units 05:49 05:49 WBC 3.28 L (4.0-11.0) K/uL RBC 4.33 L (4.50-5.90) M/uL Hgb 13.0 (13.0-17.0) g/dL Hct 38.5 (38.0-50.0) % MCV 88.9 (80.0-98.0) fL MCH 30.0 (27.0-32.0) pg MCHC 33.8 (31.0-37.0) g/dL RDW Std Deviation 40.7 (28.0-62.0) fl RDW Coeff of Lillian 13 (11.0-15.0) % Plt Count 161 (150-400) K/uL MPV 10.20 (7.40-12.00) fL Neut % (Auto) 82.7 H (48.0-80.0) % Lymph % (Auto) 9.1 L (16.0-40.0) % [place] % (Auto) 7.9 (0.0-15.0) % Eos % (Auto) 0.0 (0.0-7.0) % Baso % (Auto) 0.3 (0.0-1.5) % Neut # (Auto) 2.7 (1.4-5.7) K/uL Lymph # (Auto) 0.3 L (0.6-2.4) K/uL [place] # (Auto) 0.3 (0.0-0.8) K/uL Eos # (Auto) 0.0 (0.0-0.7) K/uL Baso # (Auto) 0.0 (0.0-0.1) K/uL Nucleated RBC % 0.0 /100WBC Nucleated RBCs # 0 K/uL Sodium 141 (136-148) mmol/L Potassium 4.7 (3.5-5.1) mmol/L Chloride 108 H (98-107) mmol/L Carbon Dioxide 20.6 L (21.0-32.0) mmol/L BUN 50 H (7.0-18.0) mg/dL Creatinine 2.5 H (0.8-1.3) mg/dL Est Cr Clr Drug Dosing 25.52 mL/min Estimated GFR (MDRD) 25.0 ml/min Glucose 153 H (74-106) mg/dL Calcium 8.3 L (8.5-10.1) mg/dL Phosphorus 3.2 (2.6-4.7) mg/dL Magnesium 1.9 (1.8-2.4) mg/dL Total Bilirubin 0.5 (0.2-1.0) mg/dL AST 32 (15-37) IU/L ALT 26 (14-63) IU/L Alkaline Phosphatase 66 (46-116) U/L Creatine Kinase (26-308) U/L Troponin I (0.000-0.056) ng/mL Total Protein 6.4 (6.4-8.2) g/dL Albumin 2.4 L (3.4-5.0) g/dL Globulin 4.0 (2.6-4.0) g/dL Albumin/Globulin Ratio 0.6 L (0.9-1.6) SARS-CoV-2 RNA (ROSIO) (NEGATIVE) Result Diagrams: 02/14/21 05:49 02/14/21 05:49 Sepsis Event Note - Evaluation Sepsis Screening Result: No Definite Risk - Focused Exam Vital Signs: Vital Signs Temp Pulse Resp BP Pulse Ox 02/14/21 12:11 36.1 C 81 18 113/67 92 L 02/14/21 08:46 35.7 C L 71 24 H 122/71 93 L 02/14/21 04:00 36.3 C 67 24 H 109/64 94 L - Problem List & Annotations (1) Acute respiratory failure with hypoxemia SNOMED Code(s): 243632652 Code(s): J96.01 - ACUTE RESPIRATORY FAILURE WITH HYPOXIA Status: Acute Current Visit: Yes - Problem List Review Problem List Initiated/Reviewed/Updated: Yes - My Orders Last 24 Hours: My Active Orders 02/13/21 Dinner Regular Diet [DIET] 02/13/21 16:35 Telemetry Monitoring [Cardiac Monitoring] [RC] Q8H 02/13/21 17:43 Ambulate [RC] ASDIRECTED Oxygen Therapy [RC] PRN VTE/DVT Education [RC] PER UNIT ROUTINE Vital Signs [RC] Q4H 02/13/21 17:44 Sequential Compression Device [OM.PC] Per Unit Routine 02/13/21 17:45 Antiembolic Devices [RC] PER UNIT ROUTINE 02/13/21 17:47 RT Post Treatment Assessment [RC] Click to Edit RT Pre-Treatment Assessment [RC] Click to Edit 02/13/21 18:00 Albuterol/Ipratropium [Combivent Respimat] See Dose Instructions INH Q4H Ondansetron [Zofran] 4 mg IVPUSH Q4H PRN dexAMETHasone 6 mg PO DAILY 02/13/21 19:00 Levofloxacin/Dextrose 5%-Water [Levaquin in D5W 750 MG/150 ML] 750 mg Premix Bag 1 bag IV Q48H 02/14/21 09:00 Enoxaparin [Lovenox] 30 mg SUBCUT Q24H 02/14/21 18:00 Remdesivir 100 mg Sodium Chloride 0.9% [Normal Saline] 100 ml IV Q24H - Plan Plan:: 80 y/o M admitted for Hypoxia sec. to COVID, cont oxygen via NC cont remdesivir cont PO dexamethasone cont heparin for dvt ppx Combivent as needed IV Levaquin for possible superimposed bacterial pneumonia regular diet Robitussin for cough PRN PT consult
[2021-02-14] MEDS: REMDESIVIR 100 MG in Sodium Chloride 0.9% 100 ML IV SCH (17:22)
[2021-02-14] MEDS: Codeine/guaiFENesin 10-100 MG/5 ML Syrup 5 ML Cup PO PRN (22:45)
[2021-02-15] MEDS: Albuterol/Ipratropium 4 GM Inhalation Spray INH SCH ×6 (02:31→21:29)
[2021-02-15 06:34] LABS: CARBON DIOXIDE,CO2 23.7 mmol/L (21.0-32.0); POTASSIUM,K 4.3 mmol/L (3.5-5.1)
[2021-02-15] MEDS: Dexamethasone 4 MG Tab PO SCH (10:17)
[2021-02-15] MEDS: Enoxaparin 30 MG/0.3 ML Syringe SUBCUT SCH (10:17)
--- NOTE | 2021-02-15 13:58 | PCM.PN ---
- General Info Date of Service: 02/15/21 - Review of Systems Systems Review Comment:: shortness of breath and strength improving - Patient Data Vitals - Most Recent: Last Vital Signs Temp 36.1 C 02/15/21 08:00 Pulse 85 02/15/21 08:00 Resp 18 02/15/21 08:00 BP 107/70 02/15/21 08:00 Pulse Ox 90 L 02/15/21 08:00 Weight - Most Recent: 81.647 kg I&O - Last 24 Hours: Intake & Output 02/14/21 02/15/21 02/15/21 22:59 06:59 14:59 Intake Total 1090 250 Output Total 850 550 Balance 240 -300 Lab Results Last 24 Hours: Laboratory Results - last 24 hr 02/15/21 02/15/21 Range/Units 05:35 05:35 WBC 7.59 (4.0-11.0) K/uL RBC 4.49 L (4.50-5.90) M/uL Hgb 13.5 (13.0-17.0) g/dL Hct 40.0 (38.0-50.0) % MCV 89.1 (80.0-98.0) fL MCH 30.1 (27.0-32.0) pg MCHC 33.8 (31.0-37.0) g/dL RDW Std Deviation 40.4 (28.0-62.0) fl RDW Coeff of Lillian 13 (11.0-15.0) % Plt Count 205 (150-400) K/uL MPV 10.50 (7.40-12.00) fL Neut % (Auto) 84.2 H (48.0-80.0) % Lymph % (Auto) 5.3 L (16.0-40.0) % [place] % (Auto) 10.4 (0.0-15.0) % Eos % (Auto) 0.0 (0.0-7.0) % Baso % (Auto) 0.1 (0.0-1.5) % Neut # (Auto) 6.4 H (1.4-5.7) K/uL Lymph # (Auto) 0.4 L (0.6-2.4) K/uL [place] # (Auto) 0.8 (0.0-0.8) K/uL Eos # (Auto) 0.0 (0.0-0.7) K/uL Baso # (Auto) 0.0 (0.0-0.1) K/uL Nucleated RBC % 0.0 /100WBC Nucleated RBCs # 0 K/uL Sodium 141 (136-148) mmol/L Potassium 4.3 (3.5-5.1) mmol/L Chloride 108 H (98-107) mmol/L Carbon Dioxide 23.7 (21.0-32.0) mmol/L BUN 57 H (7.0-18.0) mg/dL Creatinine 2.6 H (0.8-1.3) mg/dL Est Cr Clr Drug Dosing 24.54 mL/min Estimated GFR (MDRD) 23.9 ml/min Glucose 148 H (74-106) mg/dL Calcium 8.6 (8.5-10.1) mg/dL Phosphorus 3.3 (2.6-4.7) mg/dL Magnesium 2.0 (1.8-2.4) mg/dL Total Bilirubin 0.5 (0.2-1.0) mg/dL AST 27 (15-37) IU/L ALT 28 (14-63) IU/L Alkaline Phosphatase 66 (46-116) U/L Total Protein 6.4 (6.4-8.2) g/dL Albumin 2.4 L (3.4-5.0) g/dL Globulin 4.0 (2.6-4.0) g/dL Albumin/Globulin Ratio 0.6 L (0.9-1.6) Med Orders - Current: Current Medications Albuterol/Ipratropium (Albuterol/Ipratropium 4 Gm Inhalation [place]) 0 gm INH Q4H [facility] Last Admin: 02/15/21 13:36 Dose: 1 puff Documented by: Dexamethasone (Dexamethasone 4 Mg Tab) 6 mg PO DAILY [facility] Last Admin: 02/15/21 10:17 Dose: 6 mg Documented by: Enoxaparin Sodium (Enoxaparin 30 Mg/0.3 Ml Syringe) 30 mg SUBCUT Q24H [facility] Last Admin: 02/15/21 10:17 Dose: 30 mg Documented by: Guaifenesin/Codeine Phosphate (Codeine/Guaifenesin 10-100 Mg/5 Ml Syrup 5 Ml Cup) 10 ml PO Q4H PRN PRN Reason: Cough Last Admin: 02/14/21 22:45 Dose: 10 ml Documented by: Remdesivir 100 mg/ Sodium (Chloride) 100 mls @ 100 mls/hr IV Q24H [facility] Stop: 02/17/21 18:59 Last Admin: 02/14/21 17:22 Dose: 100 mls/hr Documented by: Levofloxacin/Dextrose 750 mg/ (Premix) 150 mls @ 100 mls/hr IV Q48H [facility] Last Admin: 02/13/21 20:00 Dose: 100 mls/hr Documented by: Ondansetron HCl (Ondansetron 4 Mg/2 Ml Sdv) 4 mg IVPUSH Q4H PRN PRN Reason: Nausea/Vomiting Discontinued Medications Benzonatate (Benzonatate 100 Mg Cap) 100 mg PO ONETIME ONE Stop: 02/13/21 14:55 Last Admin: 02/13/21 15:12 Dose: 100 mg Documented by: Heparin Sodium (Porcine) (Heparin Sodium 5,000 Units/Ml Vial) 5,000 units SUBCUT Q8H [facility] Last Admin: 02/14/21 01:46 Dose: 5,000 units Documented by: Lactated Ringer's (Ringers, Lactated) 1,000 mls @ 999 mls/hr IV BOLUS ONE Stop: 02/13/21 19:00 Last Admin: 02/13/21 18:14 Dose: 999 mls/hr Documented by: Remdesivir 200 mg/ Sodium (Chloride) 250 mls @ 250 mls/hr IV ONETIME ONE Stop: 02/13/21 18:59 Last Admin: 02/13/21 18:14 Dose: 250 mls/hr Documented by: - Exam General: Alert, Oriented Neck: Supple Lungs: Clear to Auscultation, Normal Respiratory Effort Cardiovascular: Regular Rate, Regular Rhythm GI/Abdominal Exam: Soft, Non-Tender, No Distention Extremities: Non-Tender, No Pedal Edema Skin: Warm, Dry, Intact Neurological: No New Focal Deficit - Patient Data Lab Results Last 24 hrs: Laboratory Results - last 24 hr 02/15/21 02/15/21 Range/Units 05:35 05:35 WBC 7.59 (4.0-11.0) K/uL RBC 4.49 L (4.50-5.90) M/uL Hgb 13.5 (13.0-17.0) g/dL Hct 40.0 (38.0-50.0) % MCV 89.1 (80.0-98.0) fL MCH 30.1 (27.0-32.0) pg MCHC 33.8 (31.0-37.0) g/dL RDW Std Deviation 40.4 (28.0-62.0) fl RDW Coeff of Lillian 13 (11.0-15.0) % Plt Count 205 (150-400) K/uL MPV 10.50 (7.40-12.00) fL Neut % (Auto) 84.2 H (48.0-80.0) % Lymph % (Auto) 5.3 L (16.0-40.0) % [place] % (Auto) 10.4 (0.0-15.0) % Eos % (Auto) 0.0 (0.0-7.0) % Baso % (Auto) 0.1 (0.0-1.5) % Neut # (Auto) 6.4 H (1.4-5.7) K/uL Lymph # (Auto) 0.4 L (0.6-2.4) K/uL [place] # (Auto) 0.8 (0.0-0.8) K/uL Eos # (Auto) 0.0 (0.0-0.7) K/uL Baso # (Auto) 0.0 (0.0-0.1) K/uL Nucleated RBC % 0.0 /100WBC Nucleated RBCs # 0 K/uL Sodium 141 (136-148) mmol/L Potassium 4.3 (3.5-5.1) mmol/L Chloride 108 H (98-107) mmol/L Carbon Dioxide 23.7 (21.0-32.0) mmol/L BUN 57 H (7.0-18.0) mg/dL Creatinine 2.6 H (0.8-1.3) mg/dL Est Cr Clr Drug Dosing 24.54 mL/min Estimated GFR (MDRD) 23.9 ml/min Glucose 148 H (74-106) mg/dL Calcium 8.6 (8.5-10.1) mg/dL Phosphorus 3.3 (2.6-4.7) mg/dL Magnesium 2.0 (1.8-2.4) mg/dL Total Bilirubin 0.5 (0.2-1.0) mg/dL AST 27 (15-37) IU/L ALT 28 (14-63) IU/L Alkaline Phosphatase 66 (46-116) U/L Total Protein 6.4 (6.4-8.2) g/dL Albumin 2.4 L (3.4-5.0) g/dL Globulin 4.0 (2.6-4.0) g/dL Albumin/Globulin Ratio 0.6 L (0.9-1.6) Result Diagrams: 02/15/21 05:35 02/15/21 05:35 Sepsis Event Note - Evaluation Sepsis Screening Result: No Definite Risk - Focused Exam Vital Signs: Vital Signs Temp Pulse Resp BP Pulse Ox 02/15/21 08:00 36.1 C 85 18 107/70 90 L 02/15/21 04:00 36.1 C 73 22 H 117/69 92 L - Problem List Review Problem List Initiated/Reviewed/Updated: Yes - My Orders Last 24 Hours: My Active Orders 02/16/21 05:11 CBC WITH AUTO DIFF [HEME] AM COMPREHENSIVE METABOLIC PN,CMP [CHEM] AM - Plan Plan:: 80 y/o M admitted for Covid pneumonia. COVID: continue NC O2, wean as tolerated, remdesiver, and dexamethasone, heparin for dv ppx, Levaquin for possible bacterial pneumonia.
[2021-02-15] MEDS: REMDESIVIR 100 MG in Sodium Chloride 0.9% 100 ML IV SCH (17:34)
[2021-02-15] MEDS: Levofloxacin/Dextrose 5%-Water 750 MG in Premix Bag 1 BAG IV SCH (19:50)
[2021-02-15] MEDS: Codeine/guaiFENesin 10-100 MG/5 ML Syrup 5 ML Cup PO PRN (20:13)
[2021-02-16] MEDS: Albuterol/Ipratropium 4 GM Inhalation Spray INH SCH ×6 (02:07→21:59)
[2021-02-16] MEDS ORDERED: Calcium Carbonate 500 MG Tab.Chew PO PRN (02:23)
[2021-02-16] MEDS ORDERED: Aluminum Hydroxide/Magnesium Hydroxide/Simethicone Susp 30 ML Cup PO PRN (02:24)
[2021-02-16] MEDS: Pantoprazole 40 MG in Sodium Chloride 0.9% 10 ML IV SCH (02:42)
[2021-02-16 07:35] LABS: CARBON DIOXIDE,CO2 20.7 mmol/L (21.0-32.0); POTASSIUM,K 4.1 mmol/L (3.5-5.1)
[2021-02-16] MEDS: Codeine/guaiFENesin 10-100 MG/5 ML Syrup 5 ML Cup PO PRN ×2 (07:58→20:04)
[2021-02-16] MEDS: Enoxaparin 30 MG/0.3 ML Syringe SUBCUT SCH (09:30)
[2021-02-16] MEDS: Dexamethasone 4 MG Tab PO SCH (10:19)
--- NOTE | 2021-02-16 14:11 | PCM.PN ---
- General Info Date of Service: 02/16/21 - Review of Systems Systems Review Comment:: feeling a little better, shortness of breath has improved. - Patient Data Vitals - Most Recent: Last Vital Signs Temp 36.2 C 02/16/21 12:52 Pulse 82 02/16/21 12:52 Resp 15 02/16/21 12:52 BP 124/63 02/16/21 12:52 Pulse Ox 90 L 02/16/21 08:10 Weight - Most Recent: 81.647 kg I&O - Last 24 Hours: Intake & Output 02/15/21 02/16/21 02/16/21 22:59 06:59 14:59 Intake Total 1520 660 Output Total 600 900 Balance 920 -240 Lab Results Last 24 Hours: Laboratory Results - last 24 hr 02/16/21 02/16/21 Range/Units 07:00 07:00 WBC 11.99 H (4.0-11.0) K/uL RBC 4.81 (4.50-5.90) M/uL Hgb 14.5 (13.0-17.0) g/dL Hct 42.4 (38.0-50.0) % MCV 88.1 (80.0-98.0) fL MCH 30.1 (27.0-32.0) pg MCHC 34.2 (31.0-37.0) g/dL RDW Std Deviation 40.7 (28.0-62.0) fl RDW Coeff of Lillian 13 (11.0-15.0) % Plt Count 245 (150-400) K/uL MPV 10.30 (7.40-12.00) fL Neut % (Auto) 89.3 H (48.0-80.0) % Lymph % (Auto) 3.6 L (16.0-40.0) % [place] % (Auto) 7.0 (0.0-15.0) % Eos % (Auto) 0.0 (0.0-7.0) % Baso % (Auto) 0.1 (0.0-1.5) % Neut # (Auto) 10.7 H (1.4-5.7) K/uL Lymph # (Auto) 0.4 L (0.6-2.4) K/uL [place] # (Auto) 0.8 (0.0-0.8) K/uL Eos # (Auto) 0.0 (0.0-0.7) K/uL Baso # (Auto) 0.0 (0.0-0.1) K/uL Nucleated RBC % 0.0 /100WBC Nucleated RBCs # 0 K/uL Sodium 142 (136-148) mmol/L Potassium 4.1 (3.5-5.1) mmol/L Chloride 108 H (98-107) mmol/L Carbon Dioxide 20.7 L (21.0-32.0) mmol/L BUN 55 H (7.0-18.0) mg/dL Creatinine 2.4 H (0.8-1.3) mg/dL Est Cr Clr Drug Dosing 26.58 mL/min Estimated GFR (MDRD) 26.2 ml/min Glucose 143 H (74-106) mg/dL Calcium 8.8 (8.5-10.1) mg/dL Total Bilirubin 0.6 (0.2-1.0) mg/dL AST 37 (15-37) IU/L ALT 36 (14-63) IU/L Alkaline Phosphatase 74 (46-116) U/L Total Protein 6.8 (6.4-8.2) g/dL Albumin 2.6 L (3.4-5.0) g/dL Globulin 4.2 H (2.6-4.0) g/dL Albumin/Globulin Ratio 0.6 L (0.9-1.6) Med Orders - Current: Current Medications Al Hydroxide/Mg Hydroxide (Aluminum Hydroxide/Magnesium Hydroxide/Simethicone Susp 30 Ml Cup) 30 ml PO Q8H PRN PRN Reason: Indigestion Last Admin: 02/16/21 02:36 Dose: 30 ml Documented by: Albuterol/Ipratropium (Albuterol/Ipratropium 4 Gm Inhalation [place]) 0 gm INH Q4H [facility] Last Admin: 02/16/21 13:24 Dose: 1 puff Documented by: Dexamethasone (Dexamethasone 4 Mg Tab) 6 mg PO DAILY [facility] Last Admin: 02/16/21 10:19 Dose: 6 mg Documented by: Enoxaparin Sodium (Enoxaparin 30 Mg/0.3 Ml Syringe) 30 mg SUBCUT Q24H [facility] Last Admin: 02/16/21 09:30 Dose: 30 mg Documented by: Guaifenesin/Codeine Phosphate (Codeine/Guaifenesin 10-100 Mg/5 Ml Syrup 5 Ml Cu p) 10 ml PO Q4H PRN PRN Reason: Cough Last Admin: 02/16/21 07:58 Dose: 10 ml Documented by: Remdesivir 100 mg/ Sodium (Chloride) 100 mls @ 100 mls/hr IV Q24H [facility] Stop: 02/17/21 18:59 Last Admin: 02/15/21 17:34 Dose: 100 mls/hr Documented by: Levofloxacin/Dextrose 750 mg/ (Premix) 150 mls @ 100 mls/hr IV Q48H [facility] Last Admin: 02/15/21 19:50 Dose: 100 mls/hr Documented by: Pantoprazole Sodium 40 mg/ (Sodium Chloride) 10 mls @ 300 mls/hr IV Q24H [facility] Last Admin: 02/16/21 02:42 Dose: 300 mls/hr Documented by: Ondansetron HCl (Ondansetron 4 Mg/2 Ml Sdv) 4 mg IVPUSH Q4H PRN PRN Reason: Nausea/Vomiting Discontinued Medications Benzonatate (Benzonatate 100 Mg Cap) 100 mg PO ONETIME ONE Stop: 02/13/21 14:55 Last Admin: 02/13/21 15:12 Dose: 100 mg Documented by: Calcium Carbonate/Glycine (Calcium Carbonate 500 Mg Tab.Chew) 1,000 mg PO Q6H PRN PRN Reason: Indigestion Heparin Sodium (Porcine) (Heparin Sodium 5,000 Units/Ml Vial) 5,000 units SUBCUT Q8H [facility] Last Admin: 02/14/21 01:46 Dose: 5,000 units Documented by: Lactated Ringer's (Ringers, Lactated) 1,000 mls @ 999 mls/hr IV BOLUS ONE Stop: 02/13/21 19:00 Last Admin: 02/13/21 18:14 Dose: 999 mls/hr Documented by: Remdesivir 200 mg/ Sodium (Chloride) 250 mls @ 250 mls/hr IV ONETIME ONE Stop: 02/13/21 18:59 Last Admin: 02/13/21 18:14 Dose: 250 mls/hr Documented by: - Exam General: Alert, Oriented Neck: Supple Lungs: Clear to Auscultation, Normal Respiratory Effort Cardiovascular: Regular Rate, Regular Rhythm GI/Abdominal Exam: Soft, Non-Tender, No Distention Extremities: Non-Tender, No Pedal Edema - Patient Data Lab Results Last 24 hrs: Laboratory Results - last 24 hr 02/16/21 02/16/21 Range/Units 07:00 07:00 WBC 11.99 H (4.0-11.0) K/uL RBC 4.81 (4.50-5.90) M/uL Hgb 14.5 (13.0-17.0) g/dL Hct 42.4 (38.0-50.0) % MCV 88.1 (80.0-98.0) fL MCH 30.1 (27.0-32.0) pg MCHC 34.2 (31.0-37.0) g/dL RDW Std Deviation 40.7 (28.0-62.0) fl RDW Coeff of Lillian 13 (11.0-15.0) % Plt Count 245 (150-400) K/uL MPV 10.30 (7.40-12.00) fL Neut % (Auto) 89.3 H (48.0-80.0) % Lymph % (Auto) 3.6 L (16.0-40.0) % [place] % (Auto) 7.0 (0.0-15.0) % Eos % (Auto) 0.0 (0.0-7.0) % Baso % (Auto) 0.1 (0.0-1.5) % Neut # (Auto) 10.7 H (1.4-5.7) K/uL Lymph # (Auto) 0.4 L (0.6-2.4) K/uL [place] # (Auto) 0.8 (0.0-0.8) K/uL Eos # (Auto) 0.0 (0.0-0.7) K/uL Baso # (Auto) 0.0 (0.0-0.1) K/uL Nucleated RBC % 0.0 /100WBC Nucleated RBCs # 0 K/uL Sodium 142 (136-148) mmol/L Potassium 4.1 (3.5-5.1) mmol/L Chloride 108 H (98-107) mmol/L Carbon Dioxide 20.7 L (21.0-32.0) mmol/L BUN 55 H (7.0-18.0) mg/dL Creatinine 2.4 H (0.8-1.3) mg/dL Est Cr Clr Drug Dosing 26.58 mL/min Estimated GFR (MDRD) 26.2 ml/min Glucose 143 H (74-106) mg/dL Calcium 8.8 (8.5-10.1) mg/dL Total Bilirubin 0.6 (0.2-1.0) mg/dL AST 37 (15-37) IU/L ALT 36 (14-63) IU/L Alkaline Phosphatase 74 (46-116) U/L Total Protein 6.8 (6.4-8.2) g/dL Albumin 2.6 L (3.4-5.0) g/dL Globulin 4.2 H (2.6-4.0) g/dL Albumin/Globulin Ratio 0.6 L (0.9-1.6) Result Diagrams: 02/16/21 07:00 02/16/21 07:00 Sepsis Event Note - Evaluation Sepsis Screening Result: No Definite Risk - Focused Exam Vital Signs: Vital Signs Temp Pulse Resp BP BP Pulse Ox 02/16/21 12:52 36.2 C 82 15 124/63 02/16/21 08:10 36.0 C L 84 18 122/61 90 L 02/16/21 04:17 35.5 C L 72 20 116/71 93 L - Problem List Review Problem List Initiated/Reviewed/Updated: Yes - My Orders Last 24 Hours: My Active Orders 02/16/21 02:24 Alum Hydrox/Mag Hydrox/Simeth [Mag-Al Plus] 30 ml PO Q8H PRN 02/16/21 02:30 Pantoprazole [ProTONIX IV] 40 mg Sodium Chloride 0.9% [Normal Saline] 10 ml IV Q24H - Plan Plan:: 80 y/o M admitted for Covid pneumonia. COVID: continue NC O2, wean as tolerated, remdesiver, and dexamethasone, heparin for dv ppx, Levaquin for possible bacterial pneumonia. dispo: likely in 2-3 days.
[2021-02-16] MEDS: REMDESIVIR 100 MG in Sodium Chloride 0.9% 100 ML IV SCH (17:24)
[2021-02-17] MEDS: Pantoprazole 40 MG in Sodium Chloride 0.9% 10 ML IV SCH (01:59)
[2021-02-17] MEDS: Albuterol/Ipratropium 4 GM Inhalation Spray INH SCH ×6 (01:59→21:25)
[2021-02-17] MEDS: Dexamethasone 4 MG Tab PO SCH (08:32)
[2021-02-17] MEDS: Enoxaparin 30 MG/0.3 ML Syringe SUBCUT SCH (08:32)
--- NOTE | 2021-02-17 10:57 | PCM.PN ---
- General Info Date of Service: 02/17/21 Admission Dx/Problem (Free Text): Admission Diagnosis/Problem Admission Diagnosis/Problem Hypoxia Subjective Update: Reports slightly short of breath. Denies any chest pain no palpitations. Cough has been improved today. Has no pain. To possibly be going home tomorrow. Functional Status: Reports: Pain Controlled, Tolerating Diet, Ambulating - Review of Systems General: Reports: No Symptoms. Denies: Weakness, Fatigue HEENT: Reports: No Symptoms. Denies: Headaches, Sore Throat, Visual Changes Pulmonary: Reports: Shortness of Breath, Cough (but improving). Denies: Sputum Cardiovascular: Reports: No Symptoms. Denies: Chest Pain Gastrointestinal: Reports: No Symptoms. Denies: Abdominal Pain, Nausea, Vomiting Genitourinary: Reports: No Symptoms. Denies: Dysuria, Frequency Musculoskeletal: Reports: No Symptoms Skin: Reports: No Symptoms Neurological: Reports: No Symptoms Psychiatric: Reports: No Symptoms - Patient Data Vitals - Most Recent: Last Vital Signs Temp 97.7 F 02/17/21 08:30 Pulse 89 02/17/21 08:30 Resp 20 02/17/21 08:30 BP 115/64 02/17/21 08:30 Pulse Ox 89 L 02/17/21 08:30 Weight - Most Recent: 81.647 kg I&O - Last 24 Hours: Intake & Output 02/16/21 02/17/21 02/17/21 22:59 06:59 14:59 Intake Total 250 310 Output Total 400 450 Balance -150 -140 Med Orders - Current: Current Medications Al Hydroxide/Mg Hydroxide (Aluminum Hydroxide/Magnesium Hydroxide/Simethicone Susp 30 Ml Cup) 30 ml PO Q8H PRN PRN Reason: Indigestion Last Admin: 02/16/21 02:36 Dose: 30 ml Documented by: Albuterol/Ipratropium (Albuterol/Ipratropium 4 Gm Inhalation [place]) 0 gm INH Q4H [facility] Last Admin: 02/17/21 05:54 Dose: 1 puff Documented by: Dexamethasone (Dexamethasone 4 Mg Tab) 6 mg PO DAILY [facility] Last Admin: 02/17/21 08:32 Dose: 6 mg Documented by: Docusate Sodium (Docusate Sodium 100 Mg Cap) 100 mg PO BID PRN PRN Reason: Constipation Enoxaparin Sodium (Enoxaparin 30 Mg/0.3 Ml Syringe) 30 mg SUBCUT Q24H [facility] Last Admin: 02/17/21 08:32 Dose: 30 mg Documented by: Guaifenesin/Codeine Phosphate (Codeine/Guaifenesin 10-100 Mg/5 Ml Syrup 5 Ml Cup) 10 ml PO Q4H PRN PRN Reason: Cough Last Admin: 02/16/21 20:04 Dose: 10 ml Documented by: Remdesivir 100 mg/ Sodium (Chloride) 100 mls @ 100 mls/hr IV Q24H [facility] Stop: 02/17/21 18:59 Last Admin: 02/16/21 17:24 Dose: 100 mls/hr Documented by: Levofloxacin/Dextrose 750 mg/ (Premix) 150 mls @ 100 mls/hr IV Q48H [facility] Last Admin: 02/15/21 19:50 Dose: 100 mls/hr Documented by: Pantoprazole Sodium 40 mg/ (Sodium Chloride) 10 mls @ 300 mls/hr IV Q24H [facility] Last Admin: 02/17/21 01:59 Dose: 300 mls/hr Documented by: Ondansetron HCl (Ondansetron 4 Mg/2 Ml Sdv) 4 mg IVPUSH Q4H PRN PRN Reason: Nausea/Vomiting Discontinued Medications Benzonatate (Benzonatate 100 Mg Cap) 100 mg PO ONETIME ONE Stop: 02/13/21 14:55 Last Admin: 02/13/21 15:12 Dose: 100 mg Documented by: Calcium Carbonate/Glycine (Calcium Carbonate 500 Mg Tab.Chew) 1,000 mg PO Q6H PRN PRN Reason: Indigestion Heparin Sodium (Porcine) (Heparin Sodium 5,000 Units/Ml Vial) 5,000 units SUBCUT Q8H [facility] Last Admin: 02/14/21 01:46 Dose: 5,000 units Documented by: Lactated Ringer's (Ringers, Lactated) 1,000 mls @ 999 mls/hr IV BOLUS ONE Stop: 02/13/21 19:00 Last Admin: 02/13/21 18:14 Dose: 999 mls/hr Documented by: Remdesivir 200 mg/ Sodium (Chloride) 250 mls @ 250 mls/hr IV ONETIME ONE Stop: 02/13/21 18:59 Last Admin: 02/13/21 18:14 Dose: 250 mls/hr Documented by: - Exam General: Alert, Oriented, Cooperative, No Acute Distress Lungs: Clear to Auscultation, Normal Respiratory Effort Cardiovascular: Regular Rate, Regular Rhythm GI/Abdominal Exam: Normal Bowel Sounds, Soft, Non-Tender Extremities: Normal Inspection, Normal Range of Motion, Non-Tender, No Pedal Edema Skin: Warm, Dry Neurological: No New Focal Deficit Psy/Mental Status: Alert, Normal Affect, Normal Mood - Patient Data Result Diagrams: 02/16/21 07:00 02/16/21 07:00 Sepsis Event Note - Evaluation Sepsis Screening Result: No Definite Risk - Focused Exam Vital Signs: Vital Signs Temp Pulse Resp BP Pulse Ox 02/17/21 08:30 97.7 F 89 20 115/64 89 L 02/17/21 03:59 97 F 75 20 104/68 91 L 02/17/21 00:21 97.1 F 81 21 H 136/70 91 L 02/17/21 00:20 21 H 88 L - Problem List & Annotations (1) COVID-19 SNOMED Code(s): 525618471 Code(s): U07.1 - COVID-19 Status: Acute Current Visit: Yes (2) Acute respiratory failure with hypoxemia SNOMED Code(s): 914468298 Code(s): J96.01 - ACUTE RESPIRATORY FAILURE WITH HYPOXIA Status: Acute Current Visit: Yes - Problem List Review Problem List Initiated/Reviewed/Updated: Yes - Plan Plan:: 80 y/o M admitted for Covid pneumonia. 1.COVID -off oxygen, roomair challenge, will likely need oxygen with activity - Remdesivir last dose today - Continue dexamethasone - Levaquin for possible bacterial pneumonia. VTE prophylaxis: heparin dispo: likely home in am.
[2021-02-17] MEDS: Codeine/guaiFENesin 10-100 MG/5 ML Syrup 5 ML Cup PO PRN ×3 (11:05→20:30)
[2021-02-17] MEDS: Docusate Sodium 100 MG Cap PO PRN (16:27)
[2021-02-17] MEDS: Levofloxacin/Dextrose 5%-Water 750 MG in Premix Bag 1 BAG IV SCH (18:02)
[2021-02-17] MEDS: REMDESIVIR 100 MG in Sodium Chloride 0.9% 100 ML IV SCH (20:11)
[2021-02-18] MEDS: Albuterol/Ipratropium 4 GM Inhalation Spray INH SCH ×6 (01:00→22:09)
[2021-02-18] MEDS: Pantoprazole 40 MG in Sodium Chloride 0.9% 10 ML IV SCH (03:12)
[2021-02-18 06:21] LABS: CARBON DIOXIDE,CO2 23.1 mmol/L (21.0-32.0)
[2021-02-18] MEDS: Codeine/guaiFENesin 10-100 MG/5 ML Syrup 5 ML Cup PO PRN (08:13)
[2021-02-18] MEDS: Docusate Sodium 100 MG Cap PO PRN (08:13)
[2021-02-18] MEDS: Dexamethasone 4 MG Tab PO SCH (08:13)
[2021-02-18] MEDS: Enoxaparin 30 MG/0.3 ML Syringe SUBCUT SCH (08:14)
--- NOTE | 2021-02-18 09:54 | PCM.PN ---
- General Info Date of Service: 02/18/21 Admission Dx/Problem (Free Text): Admission Diagnosis/Problem Admission Diagnosis/Problem Hypoxia Subjective Update: Reports slightly short of breath. Denies any chest pain no palpitations. Cough has been improved today. Has no pain. Needed oxygen overnight at 3 L. Patient gets more short of breath with activity. Spoke with she feels more comfortable giving him a day or 2 more in the hospital that she is also sick with Covid at home. Patient encouraged to be up moving in room to help with deconditioning as well as helping with his many ADLs as possible. Nurse notified Functional Status: Reports: Pain Controlled, Tolerating Diet, Ambulating, Urinating - Review of Systems General: Reports: Malaise (Improving) HEENT: Reports: No Symptoms. Denies: Headaches, Sore Throat, Visual Changes Pulmonary: Reports: Shortness of Breath (Improving mainly with exertion), Cough, Sputum (Clear to yellow) Gastrointestinal: Reports: No Symptoms. Denies: Abdominal Pain, Nausea, V omiting Genitourinary: Reports: No Symptoms. Denies: Dysuria, Frequency, Burning Musculoskeletal: Reports: No Symptoms Skin: Reports: No Symptoms Neurological: Reports: No Symptoms Psychiatric: Reports: No Symptoms - Patient Data Vitals - Most Recent: Last Vital Signs Temp 97.4 F 02/18/21 08:00 Pulse 95 02/18/21 08:00 Resp 19 02/18/21 08:00 BP 131/67 02/18/21 08:00 Pulse Ox 89 L 02/18/21 08:00 Weight - Most Recent: 81.647 kg I&O - Last 24 Hours: Intake & Output 02/17/21 02/18/21 02/18/21 22:59 06:59 14:59 Intake Total 710 840 340 Output Total 425 650 350 Balance 285 190 -10 Lab Results Last 24 Hours: Laboratory Results - last 24 hr 02/18/21 02/18/21 Range/Units 05:40 05:40 WBC 11.14 H (4.0-11.0) K/uL RBC 4.63 (4.50-5.90) M/uL Hgb 14.1 (13.0-17.0) g/dL Hct 40.9 (38.0-50.0) % MCV 88.3 (80.0-98.0) fL MCH 30.5 (27.0-32.0) pg MCHC 34.5 (31.0-37.0) g/dL RDW Std Deviation 40.9 (28.0-62.0) fl RDW Coeff of Lillian 13 (11.0-15.0) % Plt Count 220 (150-400) K/uL MPV 10.30 (7.40-12.00) fL Neut % (Auto) 85.2 H (48.0-80.0) % Lymph % (Auto) 5.7 L (16.0-40.0) % [place] % (Auto) 8.9 (0.0-15.0) % Eos % (Auto) 0.0 (0.0-7.0) % Baso % (Auto) 0.2 (0.0-1.5) % Neut # (Auto) 9.5 H (1.4-5.7) K/uL Lymph # (Auto) 0.6 (0.6-2.4) K/uL [place] # (Auto) 1.0 H (0.0-0.8) K/uL Eos # (Auto) 0.0 (0.0-0.7) K/uL Baso # (Auto) 0.0 (0.0-0.1) K/uL Nucleated RBC % 0.0 /100WBC Nucleated RBCs # 0 K/uL Sodium 142 (136-148) mmol/L Potassium 4.0 (3.5-5.1) mmol/L Chloride 108 H (98-107) mmol/L Carbon Dioxide 23.1 (21.0-32.0) mmol/L BUN 62 H (7.0-18.0) mg/dL Creatinine 2.3 H (0.8-1.3) mg/dL Est Cr Clr Drug Dosing 27.74 mL/min Estimated GFR (MDRD) 27.6 ml/min Glucose 119 H (74-106) mg/dL Calcium 8.2 L (8.5-10.1) mg/dL Total Bilirubin 0.6 (0.2-1.0) mg/dL AST 41 H (15-37) IU/L ALT 50 (14-63) IU/L Alkaline Phosphatase 69 (46-116) U/L Total Protein 6.5 (6.4-8.2) g/dL Albumin 2.5 L (3.4-5.0) g/dL Globulin 4.0 (2.6-4.0) g/dL Albumin/Globulin Ratio 0.6 L (0.9-1.6) Med Orders - Current: Current Medications Al Hydroxide/Mg Hydroxide (Aluminum Hydroxide/Magnesium Hydroxide/Simethicone Susp 30 Ml Cup) 30 ml PO Q8H PRN PRN Reason: Indigestion Last Admin: 02/16/21 02:36 Dose: 30 ml Documented by: Albuterol/Ipratropium (Albuterol/Ipratropium 4 Gm Inhalation [place]) 0 gm INH Q4H [facility] Last Admin: 02/18/21 09:20 Dose: 1 puff Documented by: Dexamethasone (Dexamethasone 4 Mg Tab) 6 mg PO DAILY [facility] Last Admin: 02/18/21 08:13 Dose: 6 mg Documented by: Docusate Sodium (Docusate Sodium 100 Mg Cap) 100 mg PO BID PRN PRN Reason: Constipation Last Admin: 02/18/21 08:13 Dose: 100 mg Documented by: Enoxaparin Sodium (Enoxaparin 30 Mg/0.3 Ml Syringe) 30 mg SUBCUT Q24H [facility] Last Admin: 02/18/21 08:14 Dose: 30 mg Documented by: Guaifenesin/Codeine Phosphate (Codeine/Guaifenesin 10-100 Mg/5 Ml Syrup 5 Ml Cup) 10 ml PO Q4H PRN PRN Reason: Cough Last Admin: 02/18/21 08:13 Dose: 10 ml Documented by: Levofloxacin/Dextrose 750 mg/ (Premix) 150 mls @ 100 mls/hr IV Q48H [facility] Last Admin: 02/17/21 18:02 Dose: 100 mls/hr Documented by: Pantoprazole Sodium 40 mg/ (Sodium Chloride) 10 mls @ 300 mls/hr IV Q24H [facility] Last Admin: 02/18/21 03:12 Dose: 300 mls/hr Documented by: Ondansetron HCl (Ondansetron 4 Mg/2 Ml Sdv) 4 mg IVPUSH Q4H PRN PRN Reason: Nausea/Vomiting Discontinued Medications Benzonatate (Benzonatate 100 Mg Cap) 100 mg PO ONETIME ONE Stop: 02/13/21 14:55 Last Admin: 02/13/21 15:12 Dose: 100 mg Documented by: Calcium Carbonate/Glycine (Calcium Carbonate 500 Mg Tab.Chew) 1,000 mg PO Q6H PRN PRN Reason: Indigestion Heparin Sodium (Porcine) (Heparin Sodium 5,000 Units/Ml Vial) 5,000 units SUBCUT Q8H [facility] Last Admin: 02/14/21 01:46 Dose: 5,000 units Documented by: Lactated Ringer's (Ringers, Lactated) 1,000 mls @ 999 mls/hr IV BOLUS ONE Stop: 02/13/21 19:00 Last Admin: 02/13/21 18:14 Dose: 999 mls/hr Documented by: Remdesivir 200 mg/ Sodium (Chloride) 250 mls @ 250 mls/hr IV ONETIME ONE Stop: 02/13/21 18:59 Last Admin: 02/13/21 18:14 Dose: 250 mls/hr Documented by: Remdesivir 100 mg/ Sodium (Chloride) 100 mls @ 100 mls/hr IV Q24H [facility] Stop: 02/17/21 18:59 Last Admin: 02/17/21 20:11 Dose: 100 mls/hr Documented by: - Exam Quality Assessment: DVT Prophylaxis. No: Supplemental Oxygen General: Alert, Oriented, Cooperative Lungs: Normal Respiratory Effort, Rhonchi (Right lower) Cardiovascular: Regular Rate, Regular Rhythm GI/Abdominal Exam: Normal Bowel Sounds, Soft, Non-Tender Extremities: Normal Inspection, Normal Range of Motion, Non-Tender, No Pedal Edema Skin: Warm, Dry Neurological: No New Focal Deficit Psy/Mental Status: Alert, Normal Affect - Patient Data Lab Results Last 24 hrs: Laboratory Results - last 24 hr 02/18/21 02/18/21 Range/Units 05:40 05:40 WBC 11.14 H (4.0-11.0) K/uL RBC 4.63 (4.50-5.90) M/uL Hgb 14.1 (13.0-17.0) g/dL Hct 40.9 (38.0-50.0) % MCV 88.3 (80.0-98.0) fL MCH 30.5 (27.0-32.0) pg MCHC 34.5 (31.0-37.0) g/dL RDW Std Deviation 40.9 (28.0-62.0) fl RDW Coeff of Lillian 13 (11.0-15.0) % Plt Count 220 (150-400) K/uL MPV 10.30 (7.40-12.00) fL Neut % (Auto) 85.2 H (48.0-80.0) % Lymph % (Auto) 5.7 L (16.0-40.0) % [place] % (Auto) 8.9 (0.0-15.0) % Eos % (Auto) 0.0 (0.0-7.0) % Baso % (Auto) 0.2 (0.0-1.5) % Neut # (Auto) 9.5 H (1.4-5.7) K/uL Lymph # (Auto) 0.6 (0.6-2.4) K/uL [place] # (Auto) 1.0 H (0.0-0.8) K/uL Eos # (Auto) 0.0 (0.0-0.7) K/uL Baso # (Auto) 0.0 (0.0-0.1) K/uL Nucleated RBC % 0.0 /100WBC Nucleated RBCs # 0 K/uL Sodium 142 (136-148) mmol/L Potassium 4.0 (3.5-5.1) mmol/L Chloride 108 H (98-107) mmol/L Carbon Dioxide 23.1 (21.0-32.0) mmol/L BUN 62 H (7.0-18.0) mg/dL Creatinine 2.3 H (0.8-1.3) mg/dL Est Cr Clr Drug Dosing 27.74 mL/min Estimated GFR (MDRD) 27.6 ml/min Glucose 119 H (74-106) mg/dL Calcium 8.2 L (8.5-10.1) mg/dL Total Bilirubin 0.6 (0.2-1.0) mg/dL AST 41 H (15-37) IU/L ALT 50 (14-63) IU/L Alkaline Phosphatase 69 (46-116) U/L Total Protein 6.5 (6.4-8.2) g/dL Albumin 2.5 L (3.4-5.0) g/dL Globulin 4.0 (2.6-4.0) g/dL Albumin/Globulin Ratio 0.6 L (0.9-1.6) Result Diagrams: 02/18/21 05:40 02/18/21 05:40 Sepsis Event Note - Evaluation Sepsis Screening Result: No Definite Risk - Focused Exam Vital Signs: Vital Signs Temp Pulse Resp BP BP Pulse Ox 02/18/21 08:00 97.4 F 95 19 131/67 89 L 02/18/21 03:24 97.2 F 73 18 105/61 93 L 02/18/21 00:53 97.2 F 84 18 128/75 93 L - Problem List & Annotations (1) COVID-19 SNOMED Code(s): 761309566 Code(s): U07.1 - COVID-19 Status: Acute Current Visit: Yes (2) Acute respiratory failure with hypoxemia SNOMED Code(s): 325681385 Code(s): J96.01 - ACUTE RESPIRATORY FAILURE WITH HYPOXIA Status: Acute Current Visit: Yes (3) History of prostate cancer SNOMED Code(s): 615573138 Code(s): Z85.46 - PERSONAL HISTORY OF MALIGNANT NEOPLASM OF PROSTATE Status: Chronic Current Visit: Yes (4) GERD (gastroesophageal reflux disease) SNOMED Code(s): 664941606 Code(s): K21.9 - GASTRO-ESOPHAGEAL REFLUX DISEASE WITHOUT ESOPHAGITIS Status: Chronic Current Visit: Yes - Problem List Review Problem List Initiated/Reviewed/Updated: Yes - Plan Plan:: 80 y/o M admitted for Covid pneumonia. 1.COVID/acute hypoxic respiratory failure -off oxygen, intermittently needs oxygen especially with activity. Will likely need oxygen on discharge home. - Continue dexamethasone - Levaquin for possible bacterial pneumonia. -Continue I-S we will add Acapella encouraged use of both -Encouraged to be up in room doing this many ADLs and ambulating as he can. -PT was consulted last week feels as though he was at baseline and needed no continued skilled care. -Lab work stable. Possible home in 1 to 2 days. VTE prophylaxis: heparin dispo: 1 to 2 days
[2021-02-18] MEDS ORDERED: Bisacodyl 10 MG Supp RECTAL PRN (11:33)
[2021-02-19] MEDS: Albuterol/Ipratropium 4 GM Inhalation Spray INH SCH ×6 (01:23→21:16)
[2021-02-19] MEDS: Pantoprazole 40 MG in Sodium Chloride 0.9% 10 ML IV SCH (01:26)
[2021-02-19] MEDS: Codeine/guaiFENesin 10-100 MG/5 ML Syrup 5 ML Cup PO PRN (01:42)
[2021-02-19 05:58] LABS: CARBON DIOXIDE,CO2 24.6 mmol/L (21.0-32.0)
[2021-02-19] MEDS: Dexamethasone 4 MG Tab PO SCH (08:21)
[2021-02-19] MEDS: Enoxaparin 30 MG/0.3 ML Syringe SUBCUT SCH (08:22)
--- NOTE | 2021-02-19 10:28 | PCM.PN ---
- General Info Date of Service: 02/19/21 Admission Dx/Problem (Free Text): Admission Diagnosis/Problem Admission Diagnosis/Problem Hypoxia Subjective Update: Continues to do well, needing 1 L NC with rest and 2 L with activity. No chest pain and SOB improving. No concerns, continue breathing exercises. Likely home in am with oxygen Functional Status: Reports: Pain Controlled, Tolerating Diet, Ambulating, Urinating - Review of Systems General: Reports: No Symptoms. Denies: Weakness, Fatigue, Malaise HEENT: Reports: No Symptoms. Denies: Headaches, Sore Throat, Visual Changes Pulmonary: Reports: No Symptoms. Denies: Shortness of Breath Cardiovascular: Reports: No Symptoms. Denies: Chest Pain Gastrointestinal: Reports: No Symptoms. Denies: Abdominal Pain, Nausea, Vomiting Genitourinary: Reports: No Symptoms. Denies: Dysuria, Frequency Musculoskeletal: Reports: No Symptoms Skin: Reports: No Symptoms Neurological: Reports: No Symptoms Psychiatric: Reports: No Symptoms - Patient Data Vitals - Most Recent: Last Vital Signs Temp 97.8 F 02/19/21 08:00 Pulse 87 02/19/21 08:00 Resp 18 02/19/21 08:00 BP 108/70 02/19/21 08:00 Pulse Ox 92 L 02/19/21 08:00 Weight - Most Recent: 81.647 kg I&O - Last 24 Hours: Intake & Output 02/18/21 02/19/21 02/19/21 22:59 06:59 14:59 Intake Total 540 350 Output Total 600 800 Balance -60 -450 Lab Results Last 24 Hours: Laboratory Results - last 24 hr 02/19/21 02/19/21 Range/Units 05:07 05:07 WBC 10.59 (4.0-11.0) K/uL RBC 4.58 (4.50-5.90) M/uL Hgb 13.7 (13.0-17.0) g/dL Hct 40.3 (38.0-50.0) % MCV 88.0 (80.0-98.0) fL MCH 29.9 (27.0-32.0) pg MCHC 34.0 (31.0-37.0) g/dL RDW Std Deviation 40.5 (28.0-62.0) fl RDW Coeff of Lillian 13 (11.0-15.0) % Plt Count 232 (150-400) K/uL MPV 10.60 (7.40-12.00) fL Neut % (Auto) 82.6 H (48.0-80.0) % Lymph % (Auto) 7.9 L (16.0-40.0) % [place] % (Auto) 8.7 (0.0-15.0) % Eos % (Auto) 0.7 (0.0-7.0) % Baso % (Auto) 0.1 (0.0-1.5) % Neut # (Auto) 8.8 H (1.4-5.7) K/uL Lymph # (Auto) 0.8 (0.6-2.4) K/uL [place] # (Auto) 0.9 H (0.0-0.8) K/uL Eos # (Auto) 0.1 (0.0-0.7) K/uL Baso # (Auto) 0.0 (0.0-0.1) K/uL Nucleated RBC % 0.0 /100WBC Nucleated RBCs # 0 K/uL Sodium 142 (136-148) mmol/L Potassium 4.0 (3.5-5.1) mmol/L Chloride 106 (98-107) mmol/L Carbon Dioxide 24.6 (21.0-32.0) mmol/L BUN 63 H (7.0-18.0) mg/dL Creatinine 2.3 H (0.8-1.3) mg/dL Est Cr Clr Drug Dosing 27.74 mL/min Estimated GFR (MDRD) 27.6 ml/min Glucose 123 H (74-106) mg/dL Calcium 8.3 L (8.5-10.1) mg/dL Med Orders - Current: Current Medications Al Hydroxide/Mg Hydroxide (Aluminum Hydroxide/Magnesium Hydroxide/Simethicone Susp 30 Ml Cup) 30 ml PO Q8H PRN PRN Reason: Indigestion Last Admin: 02/16/21 02:36 Dose: 30 ml Documented by: Albuterol/Ipratropium (Albuterol/Ipratropium 4 Gm Inhalation [place]) 0 gm INH Q4H [facility] Last Admin: 02/19/21 09:50 Dose: 1 puff Documented by: Bisacodyl (Bisacodyl 10 Mg Supp) 10 mg RECTAL DAILY PRN PRN Reason: Constipation Last Admin: 02/18/21 11:46 Dose: 10 mg Documented by: Dexamethasone (Dexamethasone 4 Mg Tab) 6 mg PO DAILY [facility] Last Admin: 02/19/21 08:21 Dose: 6 mg Documented by: Docusate Sodium (Docusate Sodium 100 Mg Cap) 100 mg PO BID PRN PRN Reason: Constipation Last Admin: 02/18/21 08:13 Dose: 100 mg Documented by: Enoxaparin Sodium (Enoxaparin 30 Mg/0.3 Ml Syringe) 30 mg SUBCUT Q24H [facility] Last Admin: 02/19/21 08:22 Dose: 30 mg Documented by: Guaifenesin/Codeine Phosphate (Codeine/Guaifenesin 10-100 Mg/5 Ml Syrup 5 Ml Cup) 10 ml PO Q4H PRN PRN Reason: Cough Last Admin: 02/19/21 01:42 Dose: 10 ml Documented by: Levofloxacin/Dextrose 750 mg/ (Premix) 150 mls @ 100 mls/hr IV Q48H [facility] Last Admin: 02/17/21 18:02 Dose: 100 mls/hr Documented by: Pantoprazole Sodium 40 mg/ (Sodium Chloride) 10 mls @ 300 mls/hr IV Q24H [facility] Last Admin: 02/19/21 01:26 Dose: 300 mls/hr Documented by: Ondansetron HCl (Ondansetron 4 Mg/2 Ml Sdv) 4 mg IVPUSH Q4H PRN PRN Reason: Nausea/Vomiting Discontinued Medications Benzonatate (Benzonatate 100 Mg Cap) 100 mg PO ONETIME ONE Stop: 02/13/21 14:55 Last Admin: 02/13/21 15:12 Dose: 100 mg Documented by: Calcium Carbonate/Glycine (Calcium Carbonate 500 Mg Tab.Chew) 1,000 mg PO Q6H PRN PRN Reason: Indigestion Heparin Sodium (Porcine) (Heparin Sodium 5,000 Units/Ml Vial) 5,000 units SUBCUT Q8H [facility] Last Admin: 02/14/21 01:46 Dose: 5,000 units Documented by: Lactated Ringer's (Ringers, Lactated) 1,000 mls @ 999 mls/hr IV BOLUS ONE Stop: 02/13/21 19:00 Last Admin: 02/13/21 18:14 Dose: 999 mls/hr Documented by: Remdesivir 200 mg/ Sodium (Chloride) 250 mls @ 250 mls/hr IV ONETIME ONE Stop: 02/13/21 18:59 Last Admin: 02/13/21 18:14 Dose: 250 mls/hr Documented by: Remdesivir 100 mg/ Sodium (Chloride) 100 mls @ 100 mls/hr IV Q24H [facility] Stop: 02/17/21 18:59 Last Admin: 02/17/21 20:11 Dose: 100 mls/hr Documented by: - Exam Quality Assessment: Supplemental Oxygen, DVT Prophylaxis General: Alert, Oriented, Cooperative, No Acute Distress Lungs: Clear to Auscultation, Normal Respiratory Effort Cardiovascular: Regular Rate, Regular Rhythm GI/Abdominal Exam: Normal Bowel Sounds, Soft, Non-Tender Extremities: Normal Inspection, Normal Range of Motion, Non-Tender, No Pedal Edema Skin: Warm, Dry Neurological: No New Focal Deficit Psy/Mental Status: Alert, Normal Affect, Normal Mood - Patient Data Lab Results Last 24 hrs: Laboratory Results - last 24 hr 02/19/21 02/19/21 Range/Units 05:07 05:07 WBC 10.59 (4.0-11.0) K/uL RBC 4.58 (4.50-5.90) M/uL Hgb 13.7 (13.0-17.0) g/dL Hct 40.3 (38.0-50.0) % MCV 88.0 (80.0-98.0) fL MCH 29.9 (27.0-32.0) pg MCHC 34.0 (31.0-37.0) g/dL RDW Std Deviation 40.5 (28.0-62.0) fl RDW Coeff of Lillian 13 (11.0-15.0) % Plt Count 232 (150-400) K/uL MPV 10.60 (7.40-12.00) fL Neut % (Auto) 82.6 H (48.0-80.0) % Lymph % (Auto) 7.9 L (16.0-40.0) % [place] % (Auto) 8.7 (0.0-15.0) % Eos % (Auto) 0.7 (0.0-7.0) % Baso % (Auto) 0.1 (0.0-1.5) % Neut # (Auto) 8.8 H (1.4-5.7) K/uL Lymph # (Auto) 0.8 (0.6-2.4) K/uL [place] # (Auto) 0.9 H (0.0-0.8) K/uL Eos # (Auto) 0.1 (0.0-0.7) K/uL Baso # (Auto) 0.0 (0.0-0.1) K/uL Nucleated RBC % 0.0 /100WBC Nucleated RBCs # 0 K/uL Sodium 142 (136-148) mmol/L Potassium 4.0 (3.5-5.1) mmol/L Chloride 106 (98-107) mmol/L Carbon Dioxide 24.6 (21.0-32.0) mmol/L BUN 63 H (7.0-18.0) mg/dL Creatinine 2.3 H (0.8-1.3) mg/dL Est Cr Clr Drug Dosing 27.74 mL/min Estimated GFR (MDRD) 27.6 ml/min Glucose 123 H (74-106) mg/dL Calcium 8.3 L (8.5-10.1) mg/dL Result Diagrams: 02/19/21 05:07 02/19/21 05:07 Sepsis Event Note - Evaluation Sepsis Screening Result: No Definite Risk - Focused Exam Vital Signs: Vital Signs Temp Pulse Resp BP BP Pulse Ox 02/19/21 08:00 97.8 F 87 18 108/70 92 L 02/19/21 04:00 97.2 F 89 19 111/61 89 L 02/19/21 00:00 97.5 F 78 19 117/61 91 L - Problem List & Annotations (1) COVID-19 SNOMED Code(s): 087622127 Code(s): U07.1 - COVID-19 Status: Acute Current Visit: Yes (2) Acute respiratory failure with hypoxemia SNOMED Code(s): 991567955 Code(s): J96.01 - ACUTE RESPIRATORY FAILURE WITH HYPOXIA Status: Acute Current Visit: Yes (3) History of prostate cancer SNOMED Code(s): 662391845 Code(s): Z85.46 - PERSONAL HISTORY OF MALIGNANT NEOPLASM OF PROSTATE Status: Chronic Current Visit: Yes (4) GERD (gastroesophageal reflux disease) SNOMED Code(s): 066252469 Code(s): K21.9 - GASTRO-ESOPHAGEAL REFLUX DISEASE WITHOUT ESOPHAGITIS Status: Chronic Current Visit: Yes - Problem List Review Problem List Initiated/Reviewed/Updated: Yes - My Orders Last 24 Hours: My Active Orders 02/18/21 10:00 RT Acapella [RESPCARE] Routine 02/18/21 11:17 Professor Of Anthropology Discontinue [Cardiac Monitoring Discontinue] [RC] Click to Edit 02/18/21 11:33 bisacodyL [Dulcolax] 10 mg RECTAL DAILY PRN 02/20/21 05:11 BMP [BASIC METABOLIC PANEL,BMP] [CHEM] AM CBC WITH AUTO DIFF [HEME] AM - Plan Plan:: 80 y/o M admitted for Covid pneumonia. 1.COVID/acute hypoxic respiratory failure -off and on oxygen, intermittently needs oxygen especially with activity. Will likely need oxygen on discharge home. - Continue dexamethasone - Levaquin for possible bacterial pneumonia. -Continue I-S we will add Acapella encouraged use of both -Encouraged to be up in room doing this many ADLs and ambulating as he can. -PT was consulted last week feels as though he was at baseline and needed no continued skilled care. -Lab work stable. Possible home in 1 to 2 days. VTE prophylaxis: heparin dispo: Home in am, will speak with to insure she is comfortable with discharge home.
[2021-02-19] MEDS: Levofloxacin/Dextrose 5%-Water 750 MG in Premix Bag 1 BAG IV SCH (18:57)
[2021-02-20] MEDS: Albuterol/Ipratropium 4 GM Inhalation Spray INH SCH ×3 (02:47→09:09)
[2021-02-20] MEDS: Pantoprazole 40 MG in Sodium Chloride 0.9% 10 ML IV SCH (02:47)
[2021-02-20 06:28] LABS: CARBON DIOXIDE,CO2 27.4 mmol/L (21.0-32.0); POTASSIUM,K 4.4 mmol/L (3.5-5.1)
[2021-02-20] MEDS: Enoxaparin 30 MG/0.3 ML Syringe SUBCUT SCH (09:08)
[2021-02-20] MEDS: Dexamethasone 4 MG Tab PO SCH (09:09)
--- NOTE | 2021-02-20 11:37 | PCM.DCSUM1 ---
Discharge Summary - Hospital Course Brief History: Patient is a 80-year-old male who presents today for cough and weakness. Patient was diagnosed with Covid a few days ago. States he has been feeling progressively weaker and his oral intake has decreased as well, he visited ER yesterday but was not hypoxic so was sent home after receiving IV fluids, In the ER patient was saturating 80% and he was started on oxygen. He does feel some shortness or breath. Patient otherwise denies any fever chills or chest pain. Manager Of Pharmacy was 2.9 possible VELIA over CKD, CXR was suggestive of covid pneumonia. Patient is being admitted for further care. Diagnosis: Stroke: No - Discharge Data Discharge Date: 02/20/21 Discharge Disposition: Home, W Home Health Agency Condition: Good - Referral to Home Health Date of Face to Face Encounter: 02/20/21 Reason for Homebound Status: Patient is in need assistance to leave the house due to COVID quarantine and the need for oxygen with ambulation. He is in need of to assist him to appointments and leaving the house. Primary Care Physician: PCP None Skilled Need: Srinath is in need retirement cares to monitor oxygen levels with new home oxygen along. He would also benefit from physical therapy to evaluate and treat. - Discharge Diagnosis/Problem(s) (1) COVID-19 SNOMED Code(s): 272347694 ICD Code: U07.1 - COVID-19 Status: Acute Current Visit: Yes (2) Acute respiratory failure with hypoxemia SNOMED Code(s): 103623420 ICD Code: J96.01 - ACUTE RESPIRATORY FAILURE WITH HYPOXIA Status: Acute Current Visit: Yes (3) History of prostate cancer SNOMED Code(s): 810283102 ICD Code: Z85.46 - PERSONAL HISTORY OF MALIGNANT NEOPLASM OF PROSTATE Status: Chronic Current Visit: Yes (4) GERD (gastroesophageal reflux disease) SNOMED Code(s): 006565868 ICD Code: K21.9 - GASTRO-ESOPHAGEAL REFLUX DISEASE WITHOUT ESOPHAGITIS Status: Chronic Current Visit: Yes - Patient Summary/Data Consults: Consultations 02/14/21 13:49 Consult to Physical Therapy [PT Evaluation and Treatment] [CONS] Routine Hospital Course: Admission diagnosis Acute hypoxic respiratory failure Covid 19 Discharge diagnoses COVID-19 Acute hypoxic respiratory failure improving Srinath was admitted secondary to acute hypoxic respiratory failure secondary to COVID-19. He was started on COVID-19 treatment which included remdesivir as well as dexamethasone. He was treated with Combivent inhaler and cough suppressants. He was also treated with intermittent oxygen which has been slowly weaned. He continues to need oxygen therapy especially with activity. Today oxygen testing was completed which revealed oxygen was 90% at rest on room air. With activity on room air saturations dropped to 87%. On 3 L of nasal cannula with activity sats was 92%. I will be discharging home today with 3 L nasal cannula with activity. The patient is up ambulatory within the home and will be in need of portable oxygen. The patient here has completed remdesivir treatment along with 7 days of Levaquin for superimposed pneumonia. He continues to have mild shortness of breath and coughing but is feeling much stronger and has been up ambulating within the room. He will be discharged home today. I did discuss quarantine with as well as patient in the room. Encouraged social distancing and masking once quarantine. Which is 1 more week stop. Also recommended him to obtain Covid vaccine once quarantine. Has been finished. He is to follow-up with PCP in 7 to 10 days. I did order home health to help monitor oxygen and overall status due to COVID-19 deconditioning. He would also benefit from physical therapy. He is to return to the ER clinic sooner if concerns should arise. - Patient Instructions Diet: Regular Diet as Tolerated Activity: No Strenuous Activities Driving: Do Not Drive Showering/Bathing: May Shower Notify Provider of: Fever, Increased Pain, Swelling and Redness, Drainage, Nausea and/or Vomiting Other/Special Instructions: Continue to quarantine for another 7 days, end of quarantine would be 02/27/2021 due to severity of illness. Continue to mask and socially distance once off qarantine. Recommend COVID vaccination after quarantine period, which could be 02/28/2021 - Discharge Plan *PRESCRIPTION DRUG MONITORING PROGRAM REVIEWED*: Not Applicable *COPY OF PRESCRIPTION DRUG MONITORING REPORT IN PATIENT CARLOS: Not Applicable Prescriptions/Med Rec: Benzonatate [Tessalon Perle] 100 mg PO TID PRN #30 capsule PRN Reason: Cough Home Medications: Home Meds Albuterol/Ipratropium [Combivent Respimat] 1 puff INH Q4H PRN inhaler 02/20/21 [Rx] Benzonatate [Tessalon Perle] 100 mg PO TID PRN #30 capsule 02/20/21 [Rx] Oxygen Therapy Mode: Nasal Cannula Oxygen Flow Rate (L/min): 3 (with activity) Maintain SpO2% greater than: 90 Patient Handouts: COVID-19 Frequently Asked Questions, COVID-19, COVID-19 Vaccine Information, COVID-19: How to Protect Yourself and Others - [facility] Referrals: Gasper Louis MD [Physician] - 02/27/21 8:00 am - Discharge Summary/Plan Comment DC Time >30 min.: Yes (Arranging oxygen as well as discussing discharge with .) - Patient Data Vitals - Most Recent: Last Vital Signs Temp 97.2 F 02/20/21 07:46 Pulse 94 02/20/21 07:46 Resp 17 02/20/21 07:46 BP 105/68 02/20/21 07:46 Pulse Ox 92 L 02/20/21 07:46 Weight - Most Recent: 81.647 kg I&O - Last 24 hours: Intake & Output 02/19/21 02/20/21 02/20/21 22:59 06:59 14:59 Intake Total 760 480 Output Total 750 750 Balance 10 -270 Lab Results - Last 24 hrs: Laboratory Results - last 24 hr 02/20/21 02/20/21 Range/Units 05:50 05:50 WBC 11.91 H (4.0-11.0) K/uL RBC 4.65 (4.50-5.90) M/uL Hgb 14.1 (13.0-17.0) g/dL Hct 41.4 (38.0-50.0) % MCV 89.0 (80.0-98.0) fL MCH 30.3 (27.0-32.0) pg MCHC 34.1 (31.0-37.0) g/dL RDW Std Deviation 40.3 (28.0-62.0) fl RDW Coeff of Lillian 13 (11.0-15.0) % Plt Count 256 (150-400) K/uL MPV 10.80 (7.40-12.00) fL Add Manual Diff YES Neutrophils % (Manual) 83 H (48.0-80.0) % Lymphocytes % (Manual) 12 L (16.0-40.0) % Monocytes % (Manual) 4 (0.0-15.0) % Eosinophils % (Manual) 1 (0.0-7.0) % Nucleated RBC % 0.0 /100WBC Absolute Seg Neuts 9.9 H (1.4-5.7) Lymphocytes # (Manual) 1.4 (0.6-2.4) Monocytes # (Manual) 0.5 (0.0-0.8) Eosinophils # (Manual) 0.1 (0.0-0.7) Nucleated RBCs # 0 K/uL Sodium 142 (136-148) mmol/L Potassium 4.4 (3.5-5.1) mmol/L Chloride 107 (98-107) mmol/L Carbon Dioxide 27.4 (21.0-32.0) mmol/L BUN 60 H (7.0-18.0) mg/dL Creatinine 2.3 H (0.8-1.3) mg/dL Est Cr Clr Drug Dosing 27.74 mL/min Estimated GFR (MDRD) 27.6 ml/min Glucose 113 H (74-106) mg/dL Calcium 8.4 L (8.5-10.1) mg/dL Med Orders - Current: Current Medications Al Hydroxide/Mg Hydroxide (Aluminum Hydroxide/Magnesium Hydroxide/Simethicone Susp 30 Ml Cup) 30 ml PO Q8H PRN PRN Reason: Indigestion Last Admin: 02/16/21 02:36 Dose: 30 ml Documented by: Albuterol/Ipratropium (Albuterol/Ipratropium 4 Gm Inhalation Coram) 0 gm INH Q4H [facility] Last Admin: 02/20/21 09:09 Dose: 1 puff Documented by: Bisacodyl (Bisacodyl 10 Mg Supp) 10 mg RECTAL DAILY PRN PRN Reason: Constipation Last Admin: 02/18/21 11:46 Dose: 10 mg Documented by: Dexamethasone (Dexamethasone 4 Mg Tab) 6 mg PO DAILY [facility] Last Admin: 02/20/21 09:09 Dose: 6 mg Documented by: Docusate Sodium (Docusate Sodium 100 Mg Cap) 100 mg PO BID PRN PRN Reason: Constipation Last Admin: 02/18/21 08:13 Dose: 100 mg Documented by: Enoxaparin Sodium (Enoxaparin 30 Mg/0.3 Ml Syringe) 30 mg SUBCUT Q24H [facility] Last Admin: 02/20/21 09:08 Dose: 30 mg Documented by: Guaifenesin/Codeine Phosphate (Codeine/Guaifenesin 10-100 Mg/5 Ml Syrup 5 Ml Cup) 10 ml PO Q4H PRN PRN Reason: Cough Last Admin: 02/19/21 01:42 Dose: 10 ml Documented by: Levofloxacin/Dextrose 750 mg/ (Premix) 150 mls @ 100 mls/hr IV Q48H [facility] Last Admin: 02/19/21 18:57 Dose: 100 mls/hr Documented by: Pantoprazole Sodium 40 mg/ (Sodium Chloride) 10 mls @ 300 mls/hr IV Q24H [facility] Last Admin: 02/20/21 02:47 Dose: 300 mls/hr Documented by: Ondansetron HCl (Ondansetron 4 Mg/2 Ml Sdv) 4 mg IVPUSH Q4H PRN PRN Reason: Nausea/Vomiting Discontinued Medications Benzonatate (Benzonatate 100 Mg Cap) 100 mg PO ONETIME ONE Stop: 02/13/21 14:55 Last Admin: 02/13/21 15:12 Dose: 100 mg Documented by: Calcium Carbonate/Glycine (Calcium Carbonate 500 Mg Tab.Chew) 1,000 mg PO Q6H PRN PRN Reason: Indigestion Heparin Sodium (Porcine) (Heparin Sodium 5,000 Units/Ml Vial) 5,000 units SUBCUT Q8H [facility] Last Admin: 02/14/21 01:46 Dose: 5,000 units Documented by: Lactated Ringer's (Ringers, Lactated) 1,000 mls @ 999 mls/hr IV BOLUS ONE Stop: 02/13/21 19:00 Last Admin: 02/13/21 18:14 Dose: 999 mls/hr Documented by: Remdesivir 200 mg/ Sodium (Chloride) 250 mls @ 250 mls/hr IV ONETIME ONE Stop: 02/13/21 18:59 Last Admin: 02/13/21 18:14 Dose: 250 mls/hr Documented by: Remdesivir 100 mg/ Sodium (Chloride) 100 mls @ 100 mls/hr IV Q24H [facility] Stop: 02/17/21 18:59 Last Admin: 02/17/21 20:11 Dose: 100 mls/hr Documented by: - Exam Quality Assessment: Reports: Supplemental Oxygen General: Reports: Alert, Oriented, Cooperative, No Acute Distress Lungs: Reports: Clear to Auscultation, Normal Respiratory Effort Cardiovascular: Reports: Regular Rate, Regular Rhythm GI/Abdominal Exam: Normal Bowel Sounds, Soft, Non-Tender Back Exam: Reports: Normal Inspection, Full Range of Motion Extremities: Normal Inspection, Normal Range of Motion Neurological: Reports: No New Focal Deficit Psy/Mental Status: Reports: Alert, Normal Affect, Normal Mood
== END 2021-02-20 13:55 | disposition home health service (06) | DRG 177 ==
LOC: MW.ED 13:45 → MW.MS 16:24
PROVIDERS: ADMIT Student in an Organized Health Care Education/Training Program; ATTEND Student in an Organized Health Care Education/Training Program
PROC: XW033E5 Introduction of Remdesivir Anti-infective into Peripheral Vein, Percutaneous Approach, New Technology Group 5 (ICD-10-PCS; principal; 2021-02-13)
DX: R53.1 Weakness (principal); U07.1 COVID-19; J96.01 Acute respiratory failure with hypoxia; J12.82 Pneumonia due to coronavirus disease 2019; J15.9 Unspecified bacterial pneumonia; Z85.46 Personal history of malignant neoplasm of prostate; K21.9 Gastro-esophageal reflux disease without esophagitis; Z85.820 Personal history of malignant melanoma of skin
CPT/HCPCS: 36415; 71045; 80053; 82550; 84484; 85025; 93005; 99285; A9270; U0002; 80048; 83735; 84100; 93010; 94640; 94667; 94668; 97161-GP; 99283; C9113; J1644; J1650; J1956; J7050; J7120; J8540